=== PATIENT | male | born 1925 | race Caucasian/White ===

== ENCOUNTER 2016-12-02 14:53 | Inpatient (IN) ==
[2016-12-02] MEDS ORDERED: TYLENOL PO PRN (16:00)
[2016-12-02] MEDS ORDERED: ZOFRAN IV PRN (16:00)
--- NOTE | 2016-12-02 16:48 | Diag Imaging Result Document ---
PROCEDURE NAME: MAIDA UPPER W/O CONTRAST - 12/02/2016 CT RIGHT SHOULDER WITHOUT CONTRAST: FINDINGS: There are arthritic changes at the acromioclavicular joint. No fracture to the clavicle or to the scapula. The humeral head is not dislocated. No fracture to the proximal humerus. IMPRESSION: There are at least mild longstanding arthritic changes to the shoulder, but no acute bony injury.
[2016-12-02] MEDS: NS 1,000 ML IV SCH (17:13)
[2016-12-02] MEDS: PROTONIX IV SCH (17:14)
[2016-12-02] MEDS: SODIUM CHLORIDE 0.9% INJ SCH (17:14)
--- NOTE | 2016-12-02 17:14 | HISTORY AND PHYSICAL ---
PRIMARY CARE PHYSICIAN: Dr. Vik Taylor. CHIEF COMPLAINT: Weight loss, malaise, diarrhea and melena. HISTORY OF PRESENT ILLNESS: Mr. Oh is an 89-year-old, male with a history of lung cancer status post partial pneumonectomy, hypertension, GERD, COPD who presents directly from Dr. Vik Taylor's office with report of worsening malaise, weakness over the past few months, weight loss of 25 pounds in the past 6 months, diarrhea and dark and tarry stools. He was actually in the ER about 2 weeks ago for a fall at which time he was complaining of shoulder pain. He had a head CT and shoulder x-ray done which did not show anything acute. He denies any chest pain or shortness of breath. He denies any abdominal pain. He denies any dysuria and no lower extremity edema. No orthopnea. His reports that he has an occasional cough with clear sputum but no overt fever. He has not been eating much at all because of loss of appetite and he is quite frail on physical examination. Multiple labs and diagnostics have been ordered which we are currently awaiting. The patient's vital signs are all within normal limits. He is not afebrile. Blood pressure is good. We are going to admit him now for further treatment and evaluation. PAST MEDICAL HISTORY: 1. Lung cancer status post partial pneumonectomy. 2. GERD. 3. Hypertension. 4. Hyperlipidemia. 5. CVA with subsequent right-sided weakness. 6. Glaucoma. 7. Chronic back pain. SURGICAL HISTORY: Right lung partial pneumonectomy, cervical spine and lumbar spine surgery, cataracts, bilateral inguinal hernia repair. SOCIAL HISTORY: Patient quit smoking 20-30 years ago. He has 2 glasses of wine at night. He is . His is at the bedside. FAMILY HISTORY: Noncontributory. REVIEW OF SYSTEMS: Patient has a history of depression and when asked if he has any suicidal ideations, he stated that he did, that he is in a lot of pain and that at times he wishes he would . He states that he has had plans in the past if he had a gun he would shoot himself or he just wishes he could go to sleep and not wake up. His states that he made these complaints earlier today and he is also complaining of right shoulder pain. Otherwise 10 point review of systems was obtained and found to be negative with the exception of the HPI. HOME MEDICATIONS: Acetaminophen diphenhydramine 500 mg p.o. at bedtime, Brimonidine 5 mL both eyes as directed, Plavix 75 mg p.o. a.m., [place] 5 every 6 hours as needed, lisinopril as directed and statin unspecified name and dose at this time. PHYSICAL EXAMINATION: VITAL SIGNS: Blood pressure is 120/72, heart rate is 80, respiratory rate is 18, O2 saturation 96% on room air. Temperature is 96.1 degrees. GENERAL: This is an elderly and frail-appearing 89-year-old, male, lying in hospital bed. No acute distress. NEUROLOGIC: The patient is awake and alert. He answers orientation questions correctly. He follows commands appropriately with very mild right and lower extremity weakness. Cranial nerves 2-12 are grossly intact. HEENT: Head is atraumatic, normocephalic. Pupils are equal, round, and reactive to light. Oral mucosa is dry. Trachea is midline. CHEST: Diminished throughout but clear to auscultation bilaterally. CV: Regular rate and rhythm. S1, S2 is noted. GI: Soft, nondistended, nontender. Bowel sounds are hypoactive. EXTREMITIES: Without edema, clubbing or cyanosis. Pulses are palpable bilaterally. DIAGNOSTIC DATA: Is pending. ASSESSMENT AND PLAN: 1. Weight loss/asthenia, melena and diarrhea: We have ordered a comprehensive set of labs and CT of the chest, abdomen and pelvis. The differentials are quite broad at this time. 2. Right shoulder pain. We are going to get a CT of the shoulder. X-ray of the shoulder did not show anything acute 2 weeks ago when he came to the ER. 3. Chronic obstructive pulmonary disease: Currently not in exacerbation. O2 saturations are okay. We are checking a CT of the chest now. 4. Suicidal ideations: supervisor underwriting clerks has been made aware and the patient will be on 1 on 1 until we can find an ICU bed. We will consult with [facility] once he is more stable. 5. Melena: We have consulted GI and are getting occult blood and checking a CT of the abdomen and pelvis. 6. GERD. We will add IV Protonix. 7. Hypertension: We will add IV medication for now if needed. 8. We are going to add Protonix for gastrointestinal prophylaxis and SCDs and TEDs for DVT prophylaxis given possible GI bleeding. Further recommendations to follow. Dictated by CYRUS Dunne for Dorinda Elizalde MD
[2016-12-02 17:19] LABS: MANUAL DIFF NEEDED? NO
[2016-12-02 17:26] LABS: BASO% 0.2 % (0.0-0.8); EOS# 0.02 X1000 (0.0-0.7); EOS% 0.2 % (0.0-10.0); HEMATOCRIT 48.3 % (42.0-52.0); HEMOGLOBIN 16.5 g/dL (14.0-18.0); IMM GRAN# 0.05 X1000 (0.0-0.04); IMM GRAN% 0.4 % (0.0-0.5); LYMPH# 1.04 X1000 (1.2-3.4); MCH 32.7 PG (27-31); MCHC 34.2 g/dL (33-37); MCV 95.6 FL (81-99); MONO# 0.97 X1000 (0.11-0.59); MONO% 7.5 % (1.7-9.3); MPV 11.6 FL (7.4-10.4); NEUT% 83.7 % (42.2-75.2); PLT 268 X1000 (130-400); RBC 5.05 XMIL (4.7-6.1); RETIC-HE 37.6 PG (28.2-36.6)
--- NOTE | 2016-12-02 17:28 | Diag Imaging Result Document ---
PROCEDURE NAME: THORAX/ABDOMEN/PELVIS W/O CONT - 12/02/2016 CT CHEST, ABDOMEN, AND PELVIS WITHOUT ORAL OR INTRAVENOUS CONTRAST: : FINDINGS: There is a small right-sided pleural effusion measuring 11 mm posteriorly and inferiorly in the midline. No left effusion. Prominent atherosclerosis in the coronary arteries and thoracic aorta. The ascending thoracic aorta is dilate to 4.7 cm. Prominent calcifications along the pericardial surface posteriorly and laterally on the right. The heart is not enlarged. There is a large hiatal hernia. No enlarged mediastinal or hilar lymph nodes. There are moderate- to-prominent emphysematous changes. There are increased interstitial markings believed to be fibrosis bilaterally. The finding is most pronounced in the right upper lung where there is also bronchiectasis. No consolidation. No compressed thoracic vertebra. IMPRESSION: 1. Prominent atherosclerosis with a dilated ascending thoracic aorta. 2. Prominent pericardial calcifications. 3. Small right effusion with emphysematous changes, fibrosis, and bronchiectasis. 4. Large hiatal hernia. ABDOMEN AND PELVIS WITHOUT ORAL OR INTRAVENOUS CONTRAST: COMPARISON: 03/16/2016. FINDINGS: Normal spleen and adrenal glands. No inflammation about the pancreas or gallbladder. No focal hepatic abnormality identified on this noncontrasted exam. There are bilateral renal cysts. No renal stones. No hydronephrosis. No aortic aneurysm. Prominent atherosclerosis. No bowel obstruction. The urinary bladder is moderately distended and appears normal. The prostate is not enlarged. Prominent seminal vesicles. There are several scattered diverticula. No adjacent inflammation. No abscess. No free air. IMPRESSION: Stable CT of the abdomen and pelvis.
[2016-12-02 17:32] LABS: INR 1.03; PROTIME 10.9 Seconds (9.2-11.7)
[2016-12-02 17:58] LABS: AGAP 20; ALBUMIN 3.6 g/dL (3.5-5.0); ALKALINE PHOSPHATASE 52 U/L (32-122); BUN 23 mg/dL (8-22); CALCIUM 9.6 mg/dL (8.8-10.2); CHLORIDE 93 mmol/L (98-107); COSMO 274; GOT 20 U/L (10-34); GPT 15 U/L (10-44); IRON SATURATION 24 %; POTASSIUM 4.1 mmol/L (3.5-5.1); SODIUM 135 mmol/L (136-145); TCO2 22 mmol/L (25-35); TIBC 223 ug/dL; TOTAL BILIRUBIN 0.42 mg/dL (0.20-1.00); TOTAL IRON 54 ug/dL (53-167); TOTAL PROTEIN 7.6 g/dL (6.3-8.3); UNBOUND IRON 169 ug/dL (112-346)
[2016-12-02] MEDS: NORCO-5 PO PRN (19:59)
[2016-12-02] MEDS: VITAMIN D PO SCH (19:59)
[2016-12-02] MEDS: ALPHAGAN 0.2% OPHTH SOLN BOTH EYES SCH (20:00)
[2016-12-02] MEDS: TRUSOPT 2% OPH SOLN BOTH EYES SCH (20:00)
[2016-12-02 20:53] LABS: URINE SOURCE CLEAN CATCH
[2016-12-02 21:02] LABS: BILIRUBIN URINE SMALL (NEGATIVE); BLOOD URINE TRACE-INTACT (NEGATIVE); CLARITY CLEAR (CLEAR); COLOR YELLOW; GLUCOSE URINE NEGATIVE (NEGATIVE); LEUKOCYTES URINE NEGATIVE (NEGATIVE); NITRITE URINE NEGATIVE (NEGATIVE); PH URINE 5.5; PROTEIN URINE NEGATIVE (NEGATIVE); SP GRAVITY URINE 1.025; URINE CULTURE NEEDED? YES; URINE RBC 20-40 /HPF (<10); URINE WBC TNTC /HPF (<10); UROBILINOGEN URINE 0.2 EU/dL (0.2-1.0)
[2016-12-02 21:03] LABS: URINE CAST NONE SEEN /LPF; URINE CRYSTAL NONE SEEN /HPF; URINE EPITHELIAL CELLS <10 /HPF (<10)
[2016-12-03] MEDS: NS 1,000 ML IV SCH ×2 (06:01→20:32)
[2016-12-03 06:47] LABS: HEMATOCRIT 45.5 % (42.0-52.0); HEMOGLOBIN 15.4 g/dL (14.0-18.0); MCH 33.2 PG (27-31); MCHC 33.8 g/dL (33-37); MCV 98.1 FL (81-99); RBC 4.64 XMIL (4.7-6.1)
[2016-12-03 07:11] LABS: AGAP 16; BUN 18 mg/dL (8-22); CALCIUM 9.2 mg/dL (8.8-10.2); CHLORIDE 98 mmol/L (98-107); COSMO 269; HDL 79 mg/dL (35-55); LDL 57 mg/dL; POTASSIUM 4.2 mmol/L (3.5-5.1); PREALBUMIN 16.3 mg/dL (20-40); SODIUM 134 mmol/L (136-145); TCO2 20 mmol/L (25-35); TRIGLYCERIDES 79 mg/dL (39-160); VLDL 16 mg/dL
[2016-12-03] MEDS: ALPHAGAN 0.2% OPHTH SOLN BOTH EYES SCH ×2 (09:32→20:45)
[2016-12-03] MEDS: TRUSOPT 2% OPH SOLN BOTH EYES SCH ×2 (09:32→20:45)
[2016-12-03] MEDS ORDERED: MYLICON DROPS (DOSE) MISC ONE (09:39)
[2016-12-03] MEDS ORDERED: DIPRIVAN 1% ONE (10:20)
[2016-12-03] MEDS ORDERED: VERSED ONE (10:22)
[2016-12-03] MEDS ORDERED: XYLOCAINE-MPF 2% ONE (10:44)
[2016-12-03] MEDS ORDERED: ANESTHESIA PB SET 88 IN 5742 ONE (10:44)
[2016-12-03] MEDS ORDERED: EXTENSION SET 32 IN 4522 ONE (10:44)
[2016-12-03] MEDS ORDERED: LR 1,000 ML ONE (10:44)
[2016-12-03] MEDS: CARAFATE LIQUID PO SCH ×4 (10:59→22:59)
--- NOTE | 2016-12-03 14:40 | OPERATIVE NOTE ---
PROCEDURE DATE: 12/03/2016 REQUESTING PHYSICIAN: Kee Blackwood MD PROCEDURE: 1. Esophagogastroduodenoscopy with esophageal dilation with TTS balloon. 2. Gastric biopsy. PREOPERATIVE DIAGNOSES: 1. Melena. 2. Weight loss of 145 pounds in the last few years, recently lost 25 pounds in last 6 months. 3. History of depression and suicidal ideation. POSTOPERATIVE DIAGNOSIS: 1. 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 2. Z-line was at 35 cm. 3. Hiatal hernia sliding type 10 cm with Adriano erosions noted. 4. Gastritis in the body and antrum status post biopsy. 5. Hiatal hernia, retroflexion. 6. Duodenitis erosive in duodenal bulb. 7. Normal 2nd portion of duodenum. ESTIMATED BLOOD LOSS: Minimal. COMPLICATIONS: None. ANESTHESIA: Monitored anesthesia care per anesthesiologist. SPECIMENS REMOVED: Gastric antral biopsy sent for pathology. DESCRIPTION OF PROCEDURE: After informed consent, the patient explained the risks, benefits, indications, alternatives of the procedure, the patient prepared for EGD. The risks including infection, bleeding, pain, trauma to the surrounding structures, perforation and were discussed with the patient, among others and he acknowledged understanding and agreed to proceed with procedure. The patient was brought to the OR. He was turned in left lateral position. A bite block placed in patient's mouth after adequate monitored anesthesia care. The upper scope was gently introduced through the oral vestibule and adanced all the way to the second portion of the duodenum. The esophagus normal. In the proximal middle 3rd the distal esophagus showed evidence of a ring at the GE junction and distal esophagus with the EGD scope unable to pass that area. We dilated that area successfully with the TTS balloon 10, 11, 12 and the scope was able to traverse that area. The Z-line was noted at 35 cm. There was evidence of sliding hiatal hernia 10 cm with Adriano erosions noted. This was advanced to the stomach with evidence of erythema in the body and antrum suggesting mild gastritis. This was biopsied. Retroflexion in the stomach revealed normal incisura, otherwise evidence of large hiatal hernia was noted. The GE junction did not show any evidence of any masses. The scope was advanced to the duodenum , which showed evidence of erosions and the duodenal bulb with erythema suggesting erosive duodenitis. The second portion of duodenum appeared normal. The scope was withdrawn into the stomach, the air removed as the scope was withdrawn. The patient tolerated the procedure well, currently monitored in the OR in stable condition. I discussed the plan with the patient upon waking him up, and all questions answered. RECOMMENDATIONS: 1. The patient will follow with us for repeat EGD in 4 weeks. 2. The patient will be on a liquid diet today and advance as tolerated. 3. We will continue on Protonix once daily for 3 months. We will start on Carafate 1 g 6 hours for 4 weeks. 4. The patient will need to chew the food well and stay on aspiration precautions. The patient will follow gastroesophageal reflux lifestyle changes avoid excessive tea, coffee, soda, tomatoes, onions, spicy foods, and avoid any NSAIDs. 5. Above plan discussed with the patient and all questions were answered. MTDD
[2016-12-03] MEDS: PROTONIX IV SCH (15:47)
[2016-12-03] MEDS: SODIUM CHLORIDE 0.9% INJ SCH (15:47)
--- NOTE | 2016-12-03 17:42 | CONSULTATION ---
DATE OF CONSULTATION: 12/03/2016 PRIMARY CARE PROVIDER: Dr. Vik Taylor REASON FOR CONSULT: Right shoulder pain. HISTORY OF PRESENT ILLNESS: Mr. Oh is an 89-year-old, white male with a history of lung cancer, hypertension, GERD, COPD who came to Dr. Taylor's office with worsening malaise and weakness. He was admitted to the hospital for those symptoms. The patient reportedly took a fall about 2 weeks ago, complaining of shoulder pain. It was x-rayed at that time, but when brought to the hospital they performed a CT of the right shoulder. We were asked to evaluate Mr. Oh from Orthopedic standpoint. PAST MEDICAL HISTORY: 1. Lung cancer. 2. Gastroesophageal reflux disease. 3. Hypertension. 4. Hyperlipidemia. 5. Cerebrovascular accident. 6. Glaucoma. 7. Chronic back pain. PAST SURGICAL HISTORY: Right lung pneumonectomy. Cervical spine and lumbar spine surgery. Cataracts. Bilateral inguinal hernia repair. SOCIAL HISTORY: The patient does not smoke. He has a couple glasses of wine each night. He is . FAMILY HISTORY: Noncontributory. HOME MEDICATIONS: 1. Acetaminophen/diphenhydramine 500 mg p.o. at bedtime. 2. Brimonidine 5 mL both eyes as directed. 3. Plavix 75 mg p.o. morning. 4. Dat[place] 5 every 6 hours as needed. 5. Lisinopril as directed. 6. Some type of statin. REVIEW OF SYSTEMS: 10 point review of systems was performed and currently, musculoskeletal complaint was all that he complained of today. PHYSICAL EXAMINATION: General: The patient is sitting up in the bed. He is eating his supper. He is able to answer questions appropriately. His is at the bedside as well. Musculoskeletal: Reveals pain with passive range of motion of the right shoulder as well as pain with palpation of the right shoulder. He is unable to lift his arm. DIAGNOSTICS: A CT that was performed at the hospital reveals that there are arthritic changes to the shoulder. There is no acute bony injury. Basically osteoarthritis. ASSESSMENT: Contusion of the right shoulder and osteoarthritis of the right shoulder. PLAN: We injected his shoulder with a solution of Depo-Medrol, Marcaine and lidocaine and will order a Physical Therapy evaluation for general range of motion to prevent adhesive capsulitis. We will have him follow with Dr. Arango after he is discharge from the hospital in about 3 weeks. Dictated by CYRUS Gong for Mane Arango MD
--- NOTE | 2016-12-03 18:43 | PROGRESS NOTE ---
DATE: 12/03/2016 SUBJECTIVE: The patient had an EGD today at which time, he was noted to have an esophageal stricture with a duodenal ulcer. The patient continued to report that he feels severely depressed and he has been having suicidal thoughts daily. OBJECTIVE: Vital Signs: Temperature 97.9 degrees, blood pressure 140/88, heart rate 110, respirations 20, O2 saturations 98% on room air. General: This is an elderly male, lying comfortably in bed, in no acute distress. Head: Normocephalic atraumatic. Heart: S1, S2. Normal. Regular rate and rhythm. Lungs: Clear to auscultation bilaterally. No wheezes, no rales. No rhonchi. Abdomen: Positive bowel sounds. Soft, nontender, nondistended. Extremities: No edema. No cyanosis. No calf tenderness. Peripheral pulses palpable. Neurologic: The patient is alert and oriented x3. The patient does appear to be depressed. LABS: White blood cell count 9.5, hemoglobin 15, hematocrit 45, platelets 212,000. Sodium 134, potassium 4.2, chloride 98, CO2 20, BUN 18, creatinine 0.6, glucose 79. ASSESSMENT AND PLAN: 1. Distal esophageal ring status post dilation. Continue on Protonix. 2. Duodenitis and gastritis. Continue on Carafate plus Protonix. 3. Major depression with suicidal ideation. The patient will be assessed by [facility]. The patient will most likely require inpatient psychiatric care to address his psychiatric issues. 4. Hypertension. Controlled. 5. Osteoarthritis of the right shoulder. Orthopedic Surgery has been consulted for further recommendations. 6. Will consult physical therapy. 7. Disposition. The patient will most likely need placement at a [facility] facility. rehabilitation services aide has been consulted to assist with this.
[2016-12-03] MEDS: ZOLOFT PO SCH (20:33)
[2016-12-04] MEDS: CARAFATE LIQUID PO SCH ×4 (05:02→20:45)
[2016-12-04 06:38] LABS: AGAP 15; BUN 8 mg/dL (8-22); CALCIUM 8.9 mg/dL (8.8-10.2); CHLORIDE 91 mmol/L (98-107); COSMO 254; POTASSIUM 3.9 mmol/L (3.5-5.1); SODIUM 127 mmol/L (136-145); TCO2 21 mmol/L (25-35)
[2016-12-04 06:46] LABS: HEMATOCRIT 42.4 % (42.0-52.0); HEMOGLOBIN 14.9 g/dL (14.0-18.0); MCH 33.2 PG (27-31); MCHC 35.1 g/dL (33-37); MCV 94.4 FL (81-99); MPV 11.9 FL (7.4-10.4); RBC 4.49 XMIL (4.7-6.1)
--- NOTE | 2016-12-04 07:31 | OPERATIVE NOTE ---
PROCEDURE DATE: 12/03/2016 DIAGNOSIS: Degenerative joint disease right shoulder. PROCEDURE: Intraarticular injection right shoulder. SURGEON: Charissa Arango MD. ANESTHESIA: Local. PROCEDURE IN DETAIL: An 89-year-old male with DJD about the right shoulder. Risks and benefits of intra-articular injection were discussed and he is willing to proceed. A posterior portal over the right shoulder was prepped with Betadine sterilely. Afterwards, a mixture of Marcaine and Depo-Medrol roughly 10 mL of Marcaine and 80 mg Depo-Medrol was introduced into the joint through a 21-gauge needle. Patient tolerated the procedure well and afterwards the area was covered with a Band-Aid. No adverse effects were noted.
[2016-12-04] MEDS ORDERED: SAMSCA PO ONE (10:12)
[2016-12-04] MEDS: TRUSOPT 2% OPH SOLN BOTH EYES SCH (12:28)
[2016-12-04] MEDS: NS 1,000 ML IV SCH (12:28)
[2016-12-04] MEDS: ALPHAGAN 0.2% OPHTH SOLN BOTH EYES SCH (12:28)
--- NOTE | 2016-12-04 16:17 | PROGRESS NOTE ---
DATE: 12/04/2016 SUBJECTIVE: The patient is resting comfortably in bed. He has no complaints at this time. No acute events noted overnight. OBJECTIVE: Vital Signs: Temperature 98, blood pressure 118/74, heart rate 103, respirations 18, O2 saturations 94% on room air. General: This is an elderly, chronically ill-appearing male, lying in bed, in no acute distress. Head: Normocephalic, atraumatic. Heart: S1, S2. Normal. Tachycardic. Lungs: Clear to auscultation bilaterally. No wheezing, no rales. No rhonchi. Abdomen: Positive bowel sounds. Soft, nontender, nondistended. Extremities: No edema. No cyanosis. Neurologic: The patient is alert and oriented x3. No focal neurologic deficits noted. LABS: White blood cell count 11. Hemoglobin 14, hematocrit 42, platelets 208. Sodium 127, potassium 3.9, chloride 91, CO2 of 21, BUN 8, creatinine 0.5, glucose 112. ASSESSMENT AND PLAN: 1. Distal esophageal ring status post dilation. Continue on Protonix. 2. Duodenitis with gastritis. Continue on Carafate plus Protonix. 3. Major depression with suicidal ideation. The patient did admit to suicidal thoughts on admission and even yesterday. However, today he is denying it. The patient was assessed by [facility] and since the patient is refusing further psychiatric intervention, they are unable to accept him at this time. We will continue on Zoloft and one-to-one observation. 4. Hypertension. Controlled. 5. Osteoarthritis of the right shoulder. Continue with physical therapy. DISPOSITION: environmental services floor tech is working on placement for the patient.
[2016-12-04] MEDS: PROTONIX IV SCH (16:21)
[2016-12-04] MEDS: ZOLOFT PO SCH (20:46)
[2016-12-04] MEDS: TYLENOL PM PO PRN (20:46)
[2016-12-05] MEDS: CARAFATE LIQUID PO SCH ×4 (04:49→17:21)
[2016-12-05] MEDS: TRUSOPT 2% OPH SOLN BOTH EYES SCH ×2 (04:50→11:53)
[2016-12-05] MEDS: ALPHAGAN 0.2% OPHTH SOLN BOTH EYES SCH ×2 (04:50→11:53)
[2016-12-05 06:28] LABS: HEMATOCRIT 44.2 % (42.0-52.0); HEMOGLOBIN 15.2 g/dL (14.0-18.0); MCHC 34.4 g/dL (33-37); MCV 96.1 FL (81-99); MPV 11.9 FL (7.4-10.4); RBC 4.6 XMIL (4.7-6.1)
[2016-12-05 06:49] LABS: AGAP 16; BUN 10 mg/dL (8-22); CALCIUM 9.6 mg/dL (8.8-10.2); CHLORIDE 99 mmol/L (98-107); COSMO 274; SODIUM 137 mmol/L (136-145); TCO2 22 mmol/L (25-35)
--- NOTE | 2016-12-05 17:18 | PROGRESS NOTE ---
DATE: 12/05/2016 SUBJECTIVE: The patient seems to be in better spirits today. He states that he slept well overnight. He does not have any complaints today. OBJECTIVE: Vital Signs: Temperature 97 degrees, blood pressure 103/69, heart rate 117, respirations 20, O2 saturations 97% on room air. General: This is an elderly male lying comfortably in bed in no acute distress. Head: Normocephalic, atraumatic. Heart: S1, S2. Normal. Regular rate and rhythm. Lungs: Clear to auscultation bilaterally. No wheezes, no rales. No rhonchi. Abdomen: Positive bowel sounds. Soft, nontender, nondistended. Extremities: No edema. No cyanosis. No calf tenderness. Neuro: The patient is alert and oriented x3. No focal neurologic deficits noted. LABS: White blood cell count 8.8, hemoglobin 15, hematocrit 44, platelets 217, 000. Sodium 137, potassium 4, chloride 99, CO2 22, BUN 10, creatinine 0.5, glucose 115, calcium 9.6. ASSESSMENT AND PLAN: 1. Distal esophageal ring status post dilation. Continue on Protonix. 2. Major depression with suicidal ideation. The patient appears to be in better spirits today. Continue on Zoloft. 3. Duodenitis with gastritis. Continue on Carafate and Protonix. 4. Hypertension. Controlled. 5. Osteoarthritis of the right shoulder. Continue with range of motion exercises as well as physical therapy. 6. Disposition. Awaiting rehab placement. [facility]
[2016-12-05] MEDS: PROTONIX IV SCH (17:22)
[2016-12-05] MEDS: SODIUM CHLORIDE 0.9% INJ SCH (17:22)
--- NOTE | 2016-12-05 17:38 | PROGRESS NOTE ---
DATE: 12/05/2016 SUBJECTIVE: Patient currently resting in bed. He denies any new complaints. He was able to eat 70% of a meal today. He had 1 liquid brown bowel movement today. OBJECTIVE: Temperature 97.1 degrees, pulse rate 117, respiratory rate 20, blood pressure 103/69, saturating 92% on room air. Body weight of 121 pounds. BMI of 18.4 kg.General Appearance: Thinly built, lying in bed, in no acute distress. HEENT: No pallor. No icterus. Pupils equal, react to light. Neck: Supple. Abdomen: Soft, nontender, nondistended. Bowel sounds. No rebound. Extremities: No cyanosis, clubbing, and edema. Neurologic: He is alert and awake and oriented x3. His family at bedside. His son was at the bedside. LABS: Hemoglobin and hematocrit is 15.2, 44.2, white count of 8.8, platelet count of 217,000. MCV of 96.1. Sodium 137, potassium 4, chloride 99, bicarb 22, anion gap of 16. BUN of 10, creatinine 0.5, glucose of 115, calcium 9.6. Pre-albumin is 16.3. Urine culture showed no growth. IMPRESSION AND PLAN: 1. Superficial ulcer of duodenum. The patient will be on Protonix once daily for the next 8-12 weeks and then can be weaned down to Zantac 150 mg at bedtime as needed. 2. The patient will need to be on gastroesophageal reflux life changes. 3. The patient has tight esophageal ring and distal esophageal GE junction which was dilated to 10, 11 and 12 with TTS balloon. In this regard he will continue to take small frequent meals and chew food up. I will repeat EGD in 4-6 weeks depending on the patient's symptoms. 4. Large hiatal hernia measuring about 10 cm per the EGD. Encouraged the patient to take small frequent meals. 5. Diverticulosis in the colon seen on CT scan. The patient increased fiber intake to 25-30 g and avoid excessive corn, nuts, and seeds in diet. 6. Weight loss: Watch for now. Patient has depression and is being treated by primary care team. This was discussed the patient and his son at bedside and all questions were answered. [facility]
[2016-12-05] MEDS: ZOLOFT PO SCH (21:52)
[2016-12-05] MEDS: TYLENOL PM PO PRN (21:52)
[2016-12-06] MEDS: CARAFATE LIQUID PO SCH ×4 (05:44→15:51)
[2016-12-06] MEDS: TRUSOPT 2% OPH SOLN BOTH EYES SCH ×3 (05:44→21:30)
[2016-12-06] MEDS: ALPHAGAN 0.2% OPHTH SOLN BOTH EYES SCH ×3 (05:44→21:30)
--- NOTE | 2016-12-06 14:37 | PROGRESS NOTE ---
DATE: 12/06/2016 SUBJECTIVE: The patient states that he feels a lot better today. He states that he is not feeling as depressed today but he does report that he does have bouts of depression. OBJECTIVE: Vital Signs: Temperature 97 degrees, blood pressure 122/88, heart rate 112, respirations 18, O2 saturation is 97% on room air. General: This is a chronically ill-appearing, elderly male, lying in bed, in no acute distress. Head: Normocephalic, atraumatic. Heart: S1, S2. Normal. Tachycardic. Lungs: Clear to auscultation bilaterally. No wheezes. No rales. No rhonchi. Abdomen: Positive bowel sounds. Soft, nontender, nondistended. Extremities: No edema. No cyanosis. No calf tenderness. Peripheral pulses palpable. Neurologic: The patient is alert oriented x3. No focal neurologic deficits noted. LABS: White blood cell count 8.8, hemoglobin 15, hematocrit 44, platelets 217,000. Sodium 137, potassium 4, chloride 99, CO2 22, BUN 10, creatinine 0.5, glucose 115. ASSESSMENT AND PLAN: 1. Distal esophageal ring status post dilation. Continue on Protonix. 2. Duodenitis and gastritis. Continue on Carafate and Protonix. 3. Major depression with suicidal ideation. Continue on Zoloft. The patient at some point will need an official psychiatric evaluation. 4. Hypertension. Controlled. 5. Osteoarthritis of the right shoulder. Continue with range of motion exercises as well as physical therapy. 6. Disposition. Currently awaiting rehab placement.
[2016-12-06] MEDS: SODIUM CHLORIDE 0.9% INJ SCH (15:51)
[2016-12-06] MEDS: PROTONIX IV SCH (15:51)
--- NOTE | 2016-12-06 18:44 | PROGRESS NOTE ---
DATE: 12/06/2016 SUBJECTIVE: Patient is currently resting in bed. His is present at bedside. He denies any new complaints. He is eating better. His depression little better today. Denies any nausea, vomiting, dysphagia, abdominal pain, fever, chills. OBJECTIVE: Vitals: Temperature 97.7, pulse 101, respiratory 12, blood pressure 111/70, saturating 98% room air. General Appearance: Thinly built lying in bed,in no acute. HEENT: Mild pallor. No icterus. Neck: Supple. Abdomen: Soft, nontender, nondistended. Bowel sounds and no guarding. Extremities: No cyanosis, clubbing. Neuro: Alert and awake, answers questions appropriately. LABS: reviewed; Hemoglobin and hematocrit is 15.2 and 44.2 from 12/05 and rest of labs also 12/05. MEDICATIONS: Reviewed IMPRESSION/PLAN: 1. Distal esophageal ring at gastroesophageal junction and distal esophagus status post dilation with TTS dilator 07/21/2012. Continue Protonix for 3 months. We will repeat a dilation 4-6 weeks. 2. Gastroesophageal reflux life changes: Avoid excessive tea coffee sodas, tomatoes, onions and spicy foods and avoid NSAIDS if ok with primary care team. 3. Duodenitis and gastritis. Continue on Carafate and Protonix as above. 4. Major depression and suicidal ideation. Continue on Zoloft. Primary care team is following. 5. Patient will follow up in the clinic in 4 weeks of discharge. The above plan of care was discussed with the patient and all questions were answered. [facility]
[2016-12-06] MEDS: ZOLOFT PO SCH (21:31)
[2016-12-06] MEDS: TYLENOL PM PO PRN (21:32)
[2016-12-07] MEDS: CARAFATE LIQUID PO SCH ×4 (04:49→21:29)
[2016-12-07] MEDS: ALPHAGAN 0.2% OPHTH SOLN BOTH EYES SCH ×2 (10:09→21:29)
[2016-12-07] MEDS: TRUSOPT 2% OPH SOLN BOTH EYES SCH ×2 (10:09→21:30)
--- NOTE | 2016-12-07 11:10 | PROGRESS NOTE ---
DATE: 12/07/2016 SUBJECTIVE: Patient is currently resting in bed. He is appearing well dressed today. He is eating his breakfast. His last bowel movement was yesterday per the records. OBJECTIVE: Vital signs: Temperature of 98.3 degrees, pulse of 98, respiratory rate 18, blood pressure 137/95, saturating 98% on room air. General Appearance: Moderately built, moderately nourished, lying in bed, in no acute distress. HEENT: No pallor. No icterus. Neck: Supple. Abdomen: Soft, nontender, nondistended. Bowel sounds noted. No guarding or rebound. Extremities: No cyanosis, clubbing. Neurologic: Alert, awake, oriented. LABS: No labs were drawn for the last 2 days. ASSESSMENT AND PLAN: 1. 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 Likely secondary to long-standing reflux. Will continue on Protonix once daily for 3 months. The patient may need repeat dilation in 4-6 weeks. 2. The patient will follow gastroesophageal reflux lifestyle changes. 3. Hiatal hernia. Will take small frequent meals about 4 to 6 times daily and chew the food well. 4. Duodenitis and gastritis. He is already on Protonix and Carafate as well. 5. Major depression, suicidal ideation. He is currently on Zoloft. He is feeling better. He is being followed by the primary care team. 6. Above plan was discussed with the patient and all questions answered. MTDD
[2016-12-07] MEDS: PROTONIX IV SCH (16:40)
[2016-12-07] MEDS: SODIUM CHLORIDE 0.9% INJ SCH (16:41)
--- NOTE | 2016-12-07 17:59 | PROGRESS NOTE ---
DATE: 12/07/2016 SUBJECTIVE: Patient has no focal complaints. OBJECTIVE: Vital Signs: Blood pressure 120/80, heart rate 98, respiratory 18, temperature 97.7 degrees, 97% on room air. Cardiovascular: Regular rate and rhythm. Pulmonary: Bilateral breath sounds. Clear to auscultation. Gastrointestinal: Abdomen soft, nontender, nondistended. Bowel sounds are positive. LABORATORY DATA: Hemoglobin and hematocrit is 15 and 44, platelets of 217,000 when last checked. Chemistries a couple of days ago were okay. PROBLEM LIST: 1. Gastritis/duodenitis. He seems to be stable on current medications status post dilation. 2. Major depression. He appears stable on current Zoloft. [facility] consultation has been completed but not recommending long-term care. 3. Hypertension stable. 4. Disposition. Awaiting rehabilitation placement. We will continue to follow.
[2016-12-07] MEDS: ZOLOFT PO SCH (21:29)
[2016-12-07] MEDS: TYLENOL PM PO PRN (21:32)
[2016-12-08] MEDS: CARAFATE LIQUID PO SCH ×4 (04:43→23:57)
[2016-12-08] MEDS: ALPHAGAN 0.2% OPHTH SOLN BOTH EYES SCH ×2 (09:38→23:56)
[2016-12-08] MEDS: TRUSOPT 2% OPH SOLN BOTH EYES SCH ×2 (09:38→23:56)
--- NOTE | 2016-12-08 12:45 | PROGRESS NOTE ---
DATE: 12/08/2016 SUBJECTIVE: The patient is feeling well. He is doing his crossword puzzle. His friend at the bed is concerned about them waiting for the State to clear him before he can go to a rehab. The patient otherwise has no suicidal or homicidal ideations. PHYSICAL EXAMINATION: Vital Signs: Blood pressure 104/63, pulse of 98, respiration 18, temperature 97.9 degrees, saturation of 98% on room air. General Appearance: Well-developed, well-nourished white male, in no acute distress. HEENT: Anicteric. Clear conjunctivae. Neck: Supple. No JVD. No bruit. Cardiovascular: S1, S2. Normal rate and rhythm. No murmur, rubs, or gallops. Pulmonary: Clear to auscultation bilaterally. ASSESSMENT AND PLAN: This is an 89-year-old admitted to the hospital for abdominal pain. 1. Gastritis and duodenitis, stable. We will continue Protonix and Carafate. 2. Depression and suicidal ideation. The patient does not have any suicidal ideation currently, not homicidal. The patient appears calm and collected. [facility] cleared the patient and would not recommended long-term care. The family very anxious we will get the patient to go to a rehab. We tried to explain to the patient that because of his suicide suicidal ideation this State had to clear for him before he can go to a rehab. I will have psychosocial rehabilitation counselor try to talk to the State to see if they can see him early or they can release him so he can go to a rehab. 3. Hypertension. Stable. 4. Dispositions. Continue to wait for rehab placement.
[2016-12-08] MEDS: PROTONIX IV SCH (15:04)
[2016-12-08] MEDS: ZOLOFT PO SCH (23:57)
[2016-12-09] MEDS: CARAFATE LIQUID PO SCH ×5 (06:39→19:42)
[2016-12-09] MEDS: ALPHAGAN 0.2% OPHTH SOLN BOTH EYES SCH ×3 (08:28→21:20)
[2016-12-09] MEDS: TRUSOPT 2% OPH SOLN BOTH EYES SCH ×3 (08:28→21:20)
--- NOTE | 2016-12-09 12:29 | PROGRESS NOTE ---
DATE: 12/09/2016 SUBJECTIVE: The patient is feeling well and has no complaint. His at the bedside. Vital Signs: Blood pressure 122/70, pulse of 98, respiration 18, temperature 98.1 degrees, saturation 97% on room air. General Appearance: Thin, white male, in no acute distress. HEENT: Anicteric. Clear conjunctivae. Neck: Supple. No JVD. No bruit. Cardiovascular: S1 and S2. Normal rate and rhythm. No murmur, rubs, or gallops. Pulmonary: Clear to auscultation bilaterally. Gastrointestinal: Soft, nontender, nondistended. Normoactive bowel sounds. Musculoskeletal: No clubbing, cyanosis, or edema. LABORATORY: None were ordered for today. ASSESSMENT AND PLAN: An 89-year-old admitted to the hospital for abdominal pain. 1. Gastritis and duodenitis. Continue Protonix and Carafate. 2. Depression and suicidal ideation. He is currently denying having any suicidal thoughts or depression. We talked to the State and they have until 12/18/2016 to come and do an evaluation before he can go. Family considering an assisted living facility. I encouraged them to discuss with the social work nurse. 3. Hypertension, stable. Continue the current medication. 4. Disposition will continue to wait for rehabilitation.
--- NOTE | 2016-12-09 15:43 | PROGRESS NOTE ---
DATE: 12/09/2016 SUBJECTIVE: Patient is resting in bed. His family is present at the bedside. The family is currently frustrated as the patient is not getting released to rehab. According to the family, the primary care team is awaiting the state department to come and evaluate the patient before being released to rehab. OBJECTIVE: Vital signs: Temperature 98.1 degrees, pulse rate of 98, respiratory rate 18, blood pressure 122/70, saturating 90% on room air. General Appearance: Thinly built , lying in bed, in no acute distress. HEENT: No pallor. No icterus. Neck: Supple. Abdomen: Soft, nontender, nondistended. Extremities: No cyanosis, clubbing. Neurologic: He is awake and alert. LABORATORY: Drawn last on 12/05. IMPRESSION AND PLAN: 1. 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 We will continue Protonix once daily for 3 months. We will repeat dilation in 4 -6 weeks. 2. The patient will follow gastroesophageal reflux life. 3. Gastritis and duodenitis. He will continue on proton pump inhibitors as above. 4. Hiatal hernia-large The patient will be taking small frequent meals and chew the food well. 5. Major depression, per the primary care team. 6. Bowel regimen to continue. Further recommendations pending hospital course. MTDD
[2016-12-09] MEDS: PROTONIX IV SCH (16:11)
[2016-12-09] MEDS: SODIUM CHLORIDE 0.9% INJ SCH (16:11)
--- NOTE | 2016-12-09 19:17 | PROGRESS NOTE ---
DATE: 12/08/2016 SUBJECTIVE: The patient is feeling much better. Eating well. No distress. His mood has improved. OBJECTIVE: Vital signs: Stable. Temperature normal. Pulse 98, respiration 18, blood pressure 130/90, saturation 98%. General: Moderately nourished, lying in bed, in no acute distress. HEENT: No pallor, no icterus. Neck: Supple. Trachea midline. Heart: Normal. Lungs: Normal. Abdomen: Soft. Nontender. No organomegaly. No ascites. Bowel sounds present and normal. Extremities: No cyanosis, clubbing, or edema. Neurologic: Alert, awake and oriented. LABS: No recent labs. IMPRESSION: 1. 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 Dawson. The patient is doing much better with his nutritional status and eating pretty much everything. He is scheduled for a repeat dilation in a few weeks. 2. gastroesophageal reflux regimen. 3. He was educated on hiatal hernia. 4. Major depression. He is on Zoloft and he is actually feeling much better with a better attitude. Hopefully he will continue to do well.
[2016-12-09] MEDS: ZOLOFT PO SCH (19:42)
[2016-12-09] MEDS: TYLENOL PM PO PRN (19:42)
[2016-12-09] MEDS: VITAMIN D PO SCH (19:42)
[2016-12-10] MEDS: CARAFATE LIQUID PO SCH ×5 (06:41→22:15)
[2016-12-10] MEDS: ZOLOFT PO SCH ×2 (06:41→22:15)
[2016-12-10] MEDS: TRUSOPT 2% OPH SOLN BOTH EYES SCH ×2 (09:21→22:15)
[2016-12-10] MEDS: ALPHAGAN 0.2% OPHTH SOLN BOTH EYES SCH ×2 (09:22→22:15)
--- NOTE | 2016-12-10 12:06 | PROGRESS NOTE ---
DATE: 12/10/2016 SUBJECTIVE: Patient is currently resting in bed. He is awaiting placement. He denies any new complaints. OBJECTIVE: Vital signs: Temperature of 97.5 degrees, pulse rate of 88, respiratory rate 20, blood pressure 110/72, saturating 100% room air. General Appearance: Moderately nourished, moderately built, lying in bed, in no acute distress. HEENT: No pallor. No icterus. Neck: Supple. Abdomen: Soft, nontender, nondistended. Bowel sounds are present. Extremities: No cyanosis, clubbing. Neurologic: Alert, awake, oriented. LAB: Hemoglobin and hematocrit are 15.2 and 44.2%. No further labs were checked since that time. IMPRESSION AND PLAN: 1. 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 Will need repeat dilation in 4-6 weeks. In the meanwhile, the patient will take small frequent meals, chew the food very well, and drink plenty of fluids. 2. The patient will follow gastroesophageal reflux lifestyle changes. 3. Large hiatal hernia. Continue to take small frequent meals. 4. Major depression. Being treated by the primary care team. 5. The patient is awaiting rehab placement once cleared by the primary care team and social work. The above plan was discussed the patient. All questions were answered. [facility]
--- NOTE | 2016-12-10 12:20 | PROGRESS NOTE ---
DATE: 12/10/2016 SUBJECTIVE: The patient is doing well. No complaints. He is anxious to go to rehab, but we still having him stay to evaluate him because of his suicidal ideation. OBJECTIVE: Vital Signs: Blood pressure 110/72, pulse of 88, respirations 21, temperature 97.5 degrees. Saturation of 100% on room air. General Appearance: Thin, white male, in no acute distress. HEENT: Anicteric. Clear conjunctivae. Neck supple. No JVD. No bruits. Cardiovascular: S1, S2. Normal rate and rhythm. No murmur, rubs, or gallops. Pulmonary: Clear to auscultation bilaterally. GI: Soft, nontender, nondistended. Normoactive bowel sounds. Musculoskeletal: No clubbing, cyanosis, or edema. ASSESSMENT AND PLAN: This is an 89-year-old white male admitted to the hospital for gastritis and duodenitis. 1. Gastritis and duodenitis. We will continue Protonix and Carafate. General Accounting Manager is following. 2. Suicidal ideations. We are waiting for the State to clear for the patient to go to a long- term rehab. 3. Hypertension. Continue current medications. 4. CODE STATUS: The patient is a FULL CODE.
[2016-12-10] MEDS: PERICOLACE PO PRN (12:56)
[2016-12-10] MEDS: PROTONIX IV SCH (16:15)
[2016-12-10] MEDS: SODIUM CHLORIDE 0.9% INJ SCH (16:15)
[2016-12-11] MEDS: CARAFATE LIQUID PO SCH ×5 (05:34→22:21)
[2016-12-11] MEDS: ALPHAGAN 0.2% OPHTH SOLN BOTH EYES SCH ×2 (08:24→22:16)
[2016-12-11] MEDS: TRUSOPT 2% OPH SOLN BOTH EYES SCH ×2 (08:30→22:15)
[2016-12-11] MEDS: PERICOLACE PO PRN (11:15)
--- NOTE | 2016-12-11 13:36 | PROGRESS NOTE ---
DATE: 12/11/2016 SUBJECTIVE: The patient doing well. Reading a paper. No issue. He stated that the State came out and evaluated him yesterday. Vital signs: Blood pressure 136/79, pulse of 96, respirations 16, temperature 97.5 degrees, saturating 100% on room air. General Appearance: Well-developed, thin white male, in no acute distress. Reading his newspaper in bed. HEENT: Anicteric. Clear conjunctivae. Neck: Supple. No JVD. No bruit. Cardiovascular: S1, S2. Normal rate and rhythm. No murmur, rubs, or gallops. Pulmonary: Clear to auscultation bilaterally. GI: Soft, nontender, nondistended. Normoactive bowel sounds. Musculoskeletal: No clubbing, cyanosis, or edema. ASSESSMENT AND PLAN: 89-year-old white male, admitted to the hospital for gastritis. 1. Gastritis much improved. Continue Protonix and Carafate. 2. Depression and suicidal. He has no suicidal ideation. The State came by yesterday and evaluated the patient. I discussed with social media manager, who informed me that the State will have to tie up the report and submit it to the senior living doctors before we can get the doctor over there assuming that he is accepted. We will continue with his current care. We will continue to keep the patient inpatient for now.
[2016-12-11] MEDS: PROTONIX IV SCH (15:39)
[2016-12-11] MEDS: SODIUM CHLORIDE 0.9% INJ SCH (15:39)
[2016-12-11] MEDS: TYLENOL PM PO PRN (22:15)
[2016-12-11] MEDS: ZOLOFT PO SCH (22:15)
[2016-12-11] MEDS: MIRALAX PO SCH ×2 (22:15→22:22)
[2016-12-12] MEDS: TRUSOPT 2% OPH SOLN BOTH EYES SCH ×2 (08:04→22:54)
[2016-12-12] MEDS: ALPHAGAN 0.2% OPHTH SOLN BOTH EYES SCH ×2 (08:05→22:54)
[2016-12-12] MEDS: PERICOLACE PO PRN (08:37)
--- NOTE | 2016-12-12 10:20 | PROGRESS NOTE ---
DATE: 12/11/2016 SUBJECTIVE: Patient resting in bed. He is waiting for placement at longterm. No new complaints. OBJECTIVE: Vital signs: Stable. Temp 97.5 degrees, pulse 88, respirations 20, blood pressure 110/70, saturation 100%. General: Moderately nourished, moderately built male in no acute distress. HEENT: No conjunctival pallor. Neck: Supple. Trachea midline. Heart and Lungs: Normal. Abdomen: Soft, nontender, nondistended. Bowel sounds present and normal. Extremities: No cyanosis or clubbing. Neurological: Alert and oriented. LABS: Stable. IMPRESSION AND PLAN: 1. Dysphagia secondary to esophageal ring, resolved. 2. Gastroesophageal reflux. Lifestyle changes. 3. Large hiatal hernia. 4. Major depression. He is currently waiting for the rehabilitation placement, and he should be able to most likely be discharged today.
[2016-12-12] MEDS: CARAFATE LIQUID PO SCH ×4 (10:40→22:53)
--- NOTE | 2016-12-12 14:41 | PROGRESS NOTE ---
DATE: 12/12/2016 SUBJECTIVE: The patient doing well. No complaint as well. At the bedside all questions were invited and entertained. OBJECTIVE: Blood pressure 140/86, pulse of 80, respiration of 17, temperature 97.6 degrees, saturations 97% on room air.General Appearance: Thin, white male, in no acute distress. Sitting up in his bed during the course of our appraisal. Neck: Supple. No JVD. No bruit. Cardiovascular: S1, S2, normal rate and rhythm. No murmur, rubs, or gallops. Pulmonary: Clear to auscultation bilaterally. GI: Soft, nontender, nondistended. Normoactive bowel sounds. Musculoskeletal: No clubbing, cyanosis, or edema. LABORATORY: None were ordered for today. ASSESSMENT AND PLAN: This is an 89-year-old white male, admitted to the hospital for abdominal pain and gastritis. 1. Abdominal pain and gastritis. We will continue Carafate and Protonix. 2. Suicidal ideation. They saw the patient on and we are waiting for them to type up the final report to give to the MD at the rehab so that we can transfer the patient over once the MD accepts him. We will continue the current care for now. We will continue to monitor the patient in-house. Family was kept informed with the progress.
[2016-12-12] MEDS: PROTONIX IV SCH (16:02)
[2016-12-12] MEDS: ZOLOFT PO SCH (22:50)
[2016-12-12] MEDS: TYLENOL PM PO PRN (22:53)
[2016-12-12] MEDS: MIRALAX PO SCH (22:54)
[2016-12-13] MEDS: CARAFATE LIQUID PO SCH ×4 (04:38→22:09)
[2016-12-13] MEDS: ALPHAGAN 0.2% OPHTH SOLN BOTH EYES SCH ×2 (09:33→22:04)
[2016-12-13] MEDS: TRUSOPT 2% OPH SOLN BOTH EYES SCH ×2 (09:33→22:04)
[2016-12-13] MEDS: MIRALAX PO SCH ×2 (09:34→22:06)
--- NOTE | 2016-12-13 15:15 | PROGRESS NOTE ---
DATE: 12/13/2016 SUBJECTIVE: The patient was sound asleep. His was in the sagastume. All questions were invited and entertained. OBJECTIVE: Vital signs: Blood pressure 111/71, pulse of 95, respiration 18, temperature 97.9 degrees, saturations of 97% room air. General appearance: Well-developed thin white male in no acute distress. Cardiovascular: S1, S2 normal rate and rhythm. No murmur, rubs, or gallops. Pulmonary: Clear to auscultation bilaterally. GI: Soft, nontender, nondistended. Normoactive bowel sounds. Musculoskeletal: No clubbing, cyanosis, edema. PLAN: Will wait for the state to tie up the final report so we can get the patient to a long- term rehab. The state saw the patient on this past . dairy machine operator farmworker is aware. Will continue to monitor the patient in-house. Will get him to the rehab as soon as possible.
[2016-12-13] MEDS: SODIUM CHLORIDE 0.9% INJ SCH (17:32)
[2016-12-13] MEDS: PROTONIX IV SCH (17:32)
[2016-12-13] MEDS: TYLENOL PM PO PRN (22:05)
[2016-12-13] MEDS: ZOLOFT PO SCH (22:06)
[2016-12-14] MEDS: CARAFATE LIQUID PO SCH ×5 (03:55→23:24)
[2016-12-14] MEDS: MIRALAX PO SCH ×2 (09:01→20:16)
[2016-12-14] MEDS: TRUSOPT 2% OPH SOLN BOTH EYES SCH ×2 (09:02→20:17)
[2016-12-14] MEDS: ALPHAGAN 0.2% OPHTH SOLN BOTH EYES SCH ×2 (09:02→20:17)
--- NOTE | 2016-12-14 11:44 | PROGRESS NOTE ---
DATE: 12/14/2016 SUBJECTIVE: The patient is getting ready for discharge today. He is tolerated diet well over the weekend. His last bowel movement was 3 days ago. OBJECTIVE: Vital signs: Temperature of 97.6 degrees, pulse rate of 97, respiratory rate 18, blood pressure 131/87, saturating 99% on room air. General: Thin, lying in bed, in no acute distress. HEENT: No pallor. No icterus. Neck: Supple. Abdomen: Soft, nontender, nondistended. Bowel sounds are noted. No guarding, rebound. Extremities: No cyanosis, clubbing, edema. Neurologic: He is alert, awake, oriented. LABS: No labs from this past week. Urine culture is negative. IMPRESSION AND PLAN: 1. Dysphagia secondary to esophageal ring, resolved. The patient was eating better over the weekend. 2. Gastroesophageal reflux disease. Continue follow gastroesophageal reflux lifestyle changes. 3. Large hiatal hernia. Take small frequent meals and chew the food very well. 4. Major depression. Per the primary team. 5. The patient will return to clinic in 4 weeks of discharge to evaluate for EGD with further esophageal dilation. 6. Constipation. Continue on MiraLAX once or twice daily to help with his bowels. 7. The above plan was discussed with the patient and all questions answered.
--- NOTE | 2016-12-14 17:41 | PROGRESS NOTE ---
DATE: 12/14/2016 SUBJECTIVE: The patient is resting comfortably in bed. He has no complaints at this time. OBJECTIVE: Vital Signs: Temperature 97.6 degrees, blood pressure 135/80, heart rate 95, respirations 18, O2 saturation is 98% on room air. General: This is a chronically ill-appearing, elderly male, lying in bed, in no acute distress. Head: Normocephalic, atraumatic. Heart: S1, S2. Normal. Regular rate and rhythm. Lungs: Clear to auscultation bilaterally. No wheezing. No rales. No rhonchi. Abdomen: Positive bowel sounds. Soft, nontender, nondistended. Extremities: No edema. No cyanosis. No calf tenderness. Peripheral pulses palpable. Neurologic: The patient is alert and oriented x3. No focal neurologic deficits noted. LABS: None. ASSESSMENT AND PLAN: 1. Distal esophageal ring status post dilation. Improved. Continue on Protonix. 2. Duodenitis with gastritis. Continue on Protonix and Carafate. 3. Major depression. Continue on Zoloft. 4. Hypertension. Controlled. 5. Constipation. Continue on scheduled laxative therapy. 6. Osteoarthritis of the right shoulder. Continue with range of motion exercises, as well as physical therapy. 7. Disposition. Currently awaiting rehab placement.
[2016-12-14] MEDS: SODIUM CHLORIDE 0.9% INJ SCH (18:23)
[2016-12-14] MEDS: PROTONIX IV SCH (18:23)
[2016-12-14] MEDS: ZOLOFT PO SCH (20:18)
[2016-12-14] MEDS: DULCOLAX PR SCH (20:26)
[2016-12-15] MEDS: CARAFATE LIQUID PO SCH ×4 (04:46→22:59)
[2016-12-15 06:07] LABS: HEMATOCRIT 41.9 % (42.0-52.0); HEMOGLOBIN 14.8 g/dL (14.0-18.0); MCH 33.2 PG (27-31); MCHC 35.3 g/dL (33-37); MCV 93.9 FL (81-99); MPV 11.6 FL (7.4-10.4); RBC 4.46 XMIL (4.7-6.1)
[2016-12-15 06:37] LABS: AGAP 13; BUN 14 mg/dL (8-22); CALCIUM 9.6 mg/dL (8.8-10.2); CHLORIDE 92 mmol/L (98-107); COSMO 259; POTASSIUM 3.5 mmol/L (3.5-5.1); SODIUM 129 mmol/L (136-145); TCO2 24 mmol/L (25-35)
[2016-12-15] MEDS ORDERED: SAMSCA PO ONE (09:00)
[2016-12-15] MEDS: ALPHAGAN 0.2% OPHTH SOLN BOTH EYES SCH ×3 (10:40→22:57)
[2016-12-15] MEDS: TRUSOPT 2% OPH SOLN BOTH EYES SCH ×2 (10:42→22:57)
[2016-12-15] MEDS: MIRALAX PO SCH ×2 (10:42→22:58)
--- NOTE | 2016-12-15 13:55 | PROGRESS NOTE ---
DATE: 12/15/2016 SUBJECTIVE: The patient is resting comfortably in bed. He has no complaints at this time. No acute events noted overnight. OBJECTIVE: Vital Signs: Temperature 97 degrees, blood pressure 121/77, heart rate 100, respirations 18, O2 saturations 100% on room air. General: This is a chronically ill-appearing, elderly male, lying in bed in no acute distress. Head: Normocephalic, atraumatic. Heart: S1, S2. Normal tachycardic. Lungs: Clear to auscultation bilaterally. No wheezes, no rales. No rhonchi. Abdomen: Positive bowel sounds. Soft, nontender, nondistended. Extremities: No edema. No cyanosis. No calf tenderness. Neurologic: The patient is alert and oriented x3. LABS: White blood cell count 14, hemoglobin of 14, hematocrit 41, platelets 233. Sodium 129, potassium 3.5, chloride 92, CO2 24, BUN 14, creatinine 0.6. ASSESSMENT AND PLAN: 1. Hyponatremia. Will give the patient a dose of Samsca today and repeat the sodium level in the morning. 2. Leukocytosis. The patient has been afebrile for the last week or so. We will check a urinalysis and urine culture. 3. Major depression with suicidal ideation. The patient will need to be assessed by a psychiatrist to be cleared from a psychiatric standpoint. We will continue with Zoloft. 4. Hypertension. Controlled. 5. Distal esophageal ring status post dilation. Stable. 6. Duodenitis with gastritis. Continue on Protonix. 7. Osteoarthritis of the right shoulder. Continue with physical therapy and range of motion exercises. DISPOSITION: Once the patient is cleared from a psychiatric standpoint by a psychiatrist, arrangements can be made for the patient to be discharged to inpatient rehabilitation.
[2016-12-15 14:57] LABS: URINE SOURCE VOIDED
[2016-12-15 15:11] LABS: BILIRUBIN URINE NEGATIVE (NEGATIVE); BLOOD URINE SMALL (NEGATIVE); COLOR YELLOW; GLUCOSE URINE NEGATIVE (NEGATIVE); LEUKOCYTES URINE MODERATE (NEGATIVE); NITRITE URINE POSITIVE (NEGATIVE); PH URINE 6.5; PROTEIN URINE NEGATIVE (NEGATIVE); SP GRAVITY URINE 1.012; TURBIDITY URINE HAZY (CLEAR); UROBILINOGEN URINE NORMAL (NORMAL)
[2016-12-15 15:12] LABS: URINE MICRO REVIEW NEEDED? YES
[2016-12-15 15:21] LABS: UR EPITHELIAL CELLS <10 /HPF (<10); URINE BACTERIA 3+ /HPF; URINE RBC 20-40 /HPF (<10)
[2016-12-15 15:37] LABS: URINE CRYSTALS CA OXALATE PRESENT
[2016-12-15] MEDS ORDERED: ROCEPHIN 1 GM/NS 50 ML IV SCH (15:45)
[2016-12-15] MEDS: SODIUM CHLORIDE 0.9% INJ SCH (17:15)
[2016-12-15] MEDS: PROTONIX IV SCH (17:15)
[2016-12-15] MEDS: ZOLOFT PO SCH (21:35)
[2016-12-15] MEDS: DULCOLAX PR SCH (22:58)
[2016-12-16] MEDS: CARAFATE LIQUID PO SCH ×4 (05:00→21:56)
[2016-12-16 07:22] LABS: AGAP 17; BUN 11 mg/dL (8-22); CHLORIDE 96 mmol/L (98-107); COSMO 271; POTASSIUM 4.2 mmol/L (3.5-5.1); SODIUM 136 mmol/L (136-145); TCO2 23 mmol/L (25-35)
[2016-12-16] MEDS: TRUSOPT 2% OPH SOLN BOTH EYES SCH ×2 (09:10→21:58)
[2016-12-16] MEDS: MIRALAX PO SCH ×2 (09:10→21:59)
[2016-12-16] MEDS: ALPHAGAN 0.2% OPHTH SOLN BOTH EYES SCH ×2 (09:10→21:59)
[2016-12-16] MEDS ORDERED: VANCOMYCIN IV PER PHARMACY MISC SCH (11:15)
--- NOTE | 2016-12-16 11:46 | PROGRESS NOTE ---
DATE: 12/15/2016 SUBJECTIVE: The patient is resting comfortably. Today he is complaining about constipation. I looked at his plate; he has not eaten much and he says he always ate light and he is not hungry. OBJECTIVE: Vital Signs: Temp 97 degrees. Blood pressure 127/70, heart rate 90, respirations 18, O2 saturation 100%. General: Elderly emaciated gentleman in no acute distress. HEENT: Mild conjunctival pallor present. Neck: Supple. Trachea in the midline. Heart: Normal first and second sounds. Lungs: Clear. Abdomen: Scaphoid with no organomegaly. No ascites. Bowel sounds present and normal. Extremities: No calf tenderness, no cyanosis or clubbing or edema. Neurological: Alert and oriented. LABS: White count of 14, hematocrit 41. BUN and creatinine are normal. IMPRESSION: 1. Slight hyponatremia, which is being corrected. 2. Leukocytosis. We are again getting cultures of various areas, including urinalysis. 3. Depression. 4. Hypertension. 5. Dysphagia has resolved, but he is not eating much and he does want to eat much or take any nutritional supplements. 6. Osteoarthritis. I have talked to the patient about the need to eat, and that it will help him with his constipation. The patient does not appear to be willing to do anything himself. I even mentioned the PEG tube. He said he will not like the idea and he does not want it. is at bedside. She understood our conversation.
[2016-12-16] MEDS ORDERED: VANCOMYCIN 1,650 MG in NS 250 ML IV ONE (13:00)
[2016-12-16] MEDS: PROTONIX IV SCH (15:34)
[2016-12-16] MEDS: SODIUM CHLORIDE 0.9% INJ SCH (15:34)
--- NOTE | 2016-12-16 15:34 | PROGRESS NOTE ---
DATE: 12/16/2016 SUBJECTIVE: Patient resting in bed. He has a poor appetite today. He has poor oral intake today. I believe it is likely secondary to a newly discovered UTI. His urine culture is growing gram-positive cocci. The final speciation is currently pending. He was started on ceftriaxone yesterday by the Primary Team for a urinary tract infection. OBJECTIVE: Vital signs: Temperature of 98 degrees, pulse of 111, respiratory rate 16, blood pressure 131/84, saturating 98% room air. General: Moderately nourished, lying in bed, in no acute distress. HEENT: No pallor. No icterus. Neck: Supple. Abdomen: Soft , nontender, nondistended. Bowel sounds are present. No guarding or rebound. Extremities: No cyanosis, clubbing, and edema. Neurologic: He is alert and awake. LABS: Hemoglobin and hematocrit is 14.8, hematocrit 41.9, white count of 14.72, platelet count of 233,000, sodium of 132, potassium 4.2, chloride 96, bicarb 90/70, BUN of 11, creatinine 0.6, glucose of 91, leukocytosis and a UTI with positive urine culture growing Gram positive cocci. PLAN: UTI: Follow up the final culture report. Continue antibiotics. 2. Distal esophageal ring status post dilation. Continue to encourage oral intake. I will start him on Ensure 3 times daily. 3. Duodenitis and gastritis. Continue Protonix for now. 4. Osteoarthritis of the right shoulder per the primary care team. 5. Major depression and suicidal ideation being monitored per the Primary Care team. The patient is on Zoloft. 6. Further records from Dr. Elizalde and Dr. Vik Taylor. [facility]
--- NOTE | 2016-12-16 17:22 | PROGRESS NOTE ---
DATE: 12/16/2016 SUBJECTIVE: The patient states that he is not hungry and has not really been eating well for the last several days. OBJECTIVE: Vital Signs: Temperature 97.6, blood pressure 111/64, heart rate 108, respirations 16, O2 saturations 97% on room air. General: This is a chronically ill-appearing, elderly male, lying in bed, in no acute distress. Head: Normocephalic, atraumatic. Heart: S1, S2. Normal. Tachycardic. Lungs: Clear to auscultation bilaterally. No wheezing. No rales. No rhonchi. Abdomen: Positive bowel sounds. Soft, nontender, nondistended. Extremities: No edema. No cyanosis. No calf tenderness. Neurologic: The patient is alert and oriented x3. LABS: Sodium 136, potassium 4.2, chloride 96, CO2 of 23, BUN 11, creatinine 0.6, glucose 91. ASSESSMENT AND PLAN: 1. Urinary tract infection. The urine culture is growing gram-positive cocci. Will start the patient on vancomycin and await the final urine culture results. 2. Hyponatremia. Resolved. 3. Major depression with suicidal ideation. We are currently awaiting a psychiatric evaluation on this patient. 4. Hypertension. Controlled. 5. Distal esophageal ring, status post dilation. Stable. 6. Duodenitis with gastritis. Continue on Protonix. 7. Osteoarthritis of the right shoulder. Continue with physical therapy.
[2016-12-16] MEDS: VITAMIN D PO SCH (21:55)
[2016-12-16] MEDS: ZOLOFT PO SCH (21:55)
[2016-12-16] MEDS: DULCOLAX PR SCH (21:59)
[2016-12-17] MEDS: CARAFATE LIQUID PO SCH ×4 (03:57→18:01)
[2016-12-17 06:10] LABS: MANUAL DIFF NEEDED? NO
[2016-12-17 06:15] LABS: BASO% 0.2 % (0.0-0.8); EOS# 0.07 X1000 (0.0-0.7); EOS% 0.4 % (0.0-10.0); HEMATOCRIT 44.3 % (42.0-52.0); HEMOGLOBIN 15.4 g/dL (14.0-18.0); IMM GRAN# 0.07 X1000 (0.0-0.04); IMM GRAN% 0.4 % (0.0-0.5); LYMPH# 1.14 X1000 (1.2-3.4); LYMPH% 6.5 % (20.5-51.1); MCH 32.6 PG (27-31); MCHC 34.8 g/dL (33-37); MCV 93.9 FL (81-99); MONO# 2.19 X1000 (0.11-0.59); MONO% 12.6 % (1.7-9.3); MPV 11.4 FL (7.4-10.4); NEUT% 79.9 % (42.2-75.2); PLT 240 X1000 (130-400); RBC 4.72 XMIL (4.7-6.1)
[2016-12-17 06:28] LABS: AGAP 14; BUN 12 mg/dL (8-22); CALCIUM 9.4 mg/dL (8.8-10.2); CHLORIDE 98 mmol/L (98-107); COSMO 274; POTASSIUM 3.7 mmol/L (3.5-5.1); SODIUM 137 mmol/L (136-145); TCO2 25 mmol/L (25-35)
[2016-12-17] MEDS: ALPHAGAN 0.2% OPHTH SOLN BOTH EYES SCH ×2 (09:40→20:18)
[2016-12-17] MEDS: TRUSOPT 2% OPH SOLN BOTH EYES SCH ×2 (09:40→20:18)
[2016-12-17] MEDS: MIRALAX PO SCH ×2 (09:41→20:17)
--- NOTE | 2016-12-17 11:25 | CONSULTATION ---
DATE OF CONSULTATION: 12/17/2016 CONCLUSION: The patient was admitted the hospital he tells me after falling. He also had GI bleeding. He has a leukocytosis which the only thing I can find that might be causing it is his enterococcal urinary tract infection. RECOMMENDATIONS: I agree with the decision to treat the patient with vancomycin. The susceptibilities of the enterococcal isolate need to be redone because there are some obvious mistakes. For example, the CHIDI of the organism against ampicillin is less than or equal to 2 but the interpretation of that is that the organism is resistant which is in correct, if that is what the actual CHIDI is. In addition, penicillin shows an CHIDI of 8 which makes it resistant but ampicillin has a less CHIDI. Both of those antibiotics are basically the same as regarding susceptibility to Enterococcus and they should either both be susceptible or both resistant but not 1 susceptible and the other resistant. PRESENT ILLNESS: The patient was unable provide a history. No family member is present. The patient was admitted to the hospital because of weight loss, malaise, diarrhea, and melena. He tells me that he fell and injured his shoulder. PAST MEDICAL HISTORY: Positive for lung cancer, gastroesophageal reflux disease, hypertension, hyperlipidemia, stroke with a subsequent right-sided weakness, glaucoma, and chronic back pain. PAST SURGICAL HISTORY: Positive for a partial pneumonectomy because of the patient's lung cancer, cervical spine and lumbar spine surgery, cataract surgery, and bilateral inguinal hernia repair. Patient has had cervical spine and lumbar spine surgery. SOCIAL HISTORY: Patient quit smoking 20-30 years ago. He does drink wine at night. He is and he and his live at home. They have a dog as a pet. REVIEW OF SYSTEMS: Eyes and ears: Patient has decreased hearing but his vision he thinks is okay. Neck: No stiffness. Pulmonary: He does not cough. He is not short of breath at rest. GI: No nausea or vomiting or diarrhea. The patient since he has been in here does not have a good appetite. Genitourinary: After the patient fell he was having difficulty passing his urine and had apparently an in-and-out catheterization. Endocrine: Patient does not have diabetes or thyroid disease. The rest of the patient's review of systems was very difficult for me to get from the patient. He is very hard of hearing and he was sleepy. BLOOD WORK: Thus far, the patient has a CBC with a white count of 17,420, hemoglobin 15.4, and platelet count 240,000. Creatinine 0.7. GFR is greater than 60. Patient had a CT scan of the abdomen, chest, and pelvis. CT scan of the chest showed prominent atherosclerosis with a dilated ascending thoracic aorta. There were pericardial calcifications. There was a small right effusion and emphysematous changes, fibrosis, and bronchiectasis in the lungs. In the abdomen and pelvis, the CT was read as being stable. PHYSICAL EXAMINATION: Vital Signs: Temperature is 97.8 degrees, pulse 111, respirations 16, blood pressure 157/102. His weight is listed at 121 pounds. General: This is a chronically ill-appearing, elderly male. He is in no acute distress. Head, eyes, ears, nose, and throat: He had decreased hearing. He could see near objects. In his mouth there were no white patches. Neck: No meningismus. Thorax: No increased AP diameter to the chest. Lungs: Clear to auscultation. Cardiovascular: Heart rate is regular. Abdomen: Soft and nontender. Neurologic: The patient can move his extremities. There is no tremor. His sensation is intact to touch. His memory as regarding his medical history was decreased. Integument: He did have some bruised and ecchymotic areas. Thank you for the consult.
--- NOTE | 2016-12-17 12:03 | PROGRESS NOTE ---
DATE: 12/17/2016 SUBJECTIVE: Patient currently resting in bed. He has decreased oral intake. He has lack of appetite. His urine culture is growing group D Enterococcus faecalis, which is sensitive to vancomycin and nitrofurantoin. We have called Dr. Schumacher to consult in that regard. OBJECTIVE: Vital Signs: Temperature 97.8, pulse 111, respiratory rate 16, blood pressure 157/102, satting 98% on room air. General Appearance: Thinly built, lying in bed in no acute distress. HEENT: No pallor. No icterus. Neck: Supple. Abdomen: Soft, nontender, nondistended. Bowel sounds are present. No guarding. No rebound. Extremities : No cyanosis, clubbing. Neurologic: Neuro-taylor, he is awake and alert. Answers simple questions. LABS: Hemoglobin 15.4, white count of. 17.42, hematocrit 44.3, platelet count of 240. Sodium 137, potassium 3.7, chloride 98, bicarbonate 20, anion gap 14, BUN of 12, creatinine 0.7, glucose of 100, calcium 9.4. IMPRESSION AND PLAN: 1. Distal esophageal ring status post dilation, but continues to have poor oral intake. We will encourage him to take Ensure 3 times daily and chew the food well. 2. Reflux disease, gastritis and duodenitis. I will continue on Protonix. 3. Urinary tract infection. Urine culture growing group D Enterococcus faecalis sensitive to vancomycin for Dr. Matt Schumacher. 4. Major depression per the primary care team. Discussed with the patient and RN. MTDD
[2016-12-17] MEDS ORDERED: VANCOMYCIN 1,350 MG in NS 250 ML IV SCH (13:00)
[2016-12-17] MEDS: SODIUM CHLORIDE 0.9% INJ SCH (15:02)
[2016-12-17] MEDS: PROTONIX IV SCH (15:03)
--- NOTE | 2016-12-17 15:19 | PROGRESS NOTE ---
DATE: 12/17/2016 SUBJECTIVE: The patient is resting comfortably in bed. He is tachycardic. The patient denies feeling depressed today and also denies having any suicidal ideation today. OBJECTIVE: Vital Signs: Temperature 98 degrees, blood pressure 149/85, heart rate 116, respirations 18, O2 saturations 98% on room air. General: This is a chronically ill-appearing, elderly male, lying in bed, in no acute distress. Head: Normocephalic atraumatic. Heart: S1, S2. Normal. Tachycardic. Lungs: Clear to auscultation bilaterally. No wheezes, no rales. No rhonchi. Abdomen: Positive bowel sounds. Soft, nontender, nondistended. Extremities: No edema, no cyanosis, no calf tenderness. Neurologic: The patient is alert and oriented x3. No focal neurologic deficits noted. LABS: White blood cell count 17, hemoglobin 15, hematocrit 44, platelets 240, 000. Sodium 137, potassium 3.7, chloride 98, CO2 25, BUN 12, creatinine 0.7. Glucose 100. ASSESSMENT AND PLAN: 1. Urinary tract infection secondary to Enterococcus faecalis. Continue on IV vancomycin. 2. Hyponatremia. Resolved. 3. Major depression with suicidal ideation. Today the patient denies having any suicidal ideation and states that he does not feel depressed today. Continue on Zoloft. 4. Hypertension. Controlled. 5. Distal esophageal ring status post dilation. Stable. 6. Duodenitis with gastritis. Continue on Protonix. 7. Leukocytosis secondary to UTI. Continue on IV vancomycin. 8. Deep vein thrombosis prophylaxis. Continue with SCDs. 9. Continue with physical therapy. Disposition. I spoke to the patient's via the phone and updated her on the patient's progress. I told her that we would need to keep the patient thru the weekend to treat his urinary tract infection. She stated that she was fine with doing that. MTDD
[2016-12-17] MEDS: ZOLOFT PO SCH (20:14)
[2016-12-17] MEDS: DULCOLAX PR SCH (20:18)
[2016-12-18] MEDS: CARAFATE LIQUID PO SCH ×6 (00:47→22:50)
[2016-12-18] MEDS: NORCO-5 PO PRN (05:08)
[2016-12-18] MEDS: MIRALAX PO SCH ×2 (08:39→20:27)
[2016-12-18] MEDS: TRUSOPT 2% OPH SOLN BOTH EYES SCH ×2 (08:40→20:26)
[2016-12-18] MEDS: ALPHAGAN 0.2% OPHTH SOLN BOTH EYES SCH ×2 (08:41→20:26)
--- NOTE | 2016-12-18 10:00 | PROGRESS NOTE ---
DATE: 12/18/2016 PRESENT ILLNESS: The patient has leukocytosis, and I think his enterococcal urinary tract infection may be responsible for the leukocytosis. Because he is having a leukocytosis, I think we have to assume that his kidneys are involved with the infection. Yesterday, the urine culture results were amended. Initially the isolate was put down as being resistant to ampicillin, but this was corrected and now the patient's Enterococcus is susceptible to ampicillin, as well as penicillin and vancomycin. MEDICATIONS: Currently, the patient is receiving IV vancomycin. PHYSICAL EXAMINATION: Vital Signs: Temperature is 98.6 degrees, pulse 102, respirations 18 and blood pressure 134/80. General: This is a chronically ill-appearing, elderly male. He is in no acute distress. Lungs: Clear to auscultation. Cardiovascular: Heart rate was regular and at times there appeared to be a prolonged pause between heartbeats. Abdomen: Abdomen and flank soft and nontender. Neurologic: Patient is awake. He can move his extremities. LAB AND X-RAY: No new lab or x-ray. ASSESSMENT AND PLAN: As mentioned above, the susceptibility studies on the urine isolate have been amended for ampicillin and the organism is indeed susceptible to ampicillin. There is no new lab or radiographic study today. My assessment is to switch the patient from vancomycin to ampicillin intravenously in a dose of 1 g every 6 hours. When the patient is able to go home, I would suggest switching him to amoxicillin 500 mg p.o. every 8 hours for a total treatment course with the ampicillin and amoxicillin of 14 days. COMORBIDITIES: The patient's comorbidities include the fact that he is very elderly, he has had lung cancer as well. [facility]
[2016-12-18] MEDS: AMPICILLIN 1 GM/NS 50 ML IV SCH ×3 (11:20→20:27)
[2016-12-18 12:03] LABS: MANUAL DIFF NEEDED? NO
[2016-12-18 12:11] LABS: BASO% 0.2 % (0.0-0.8); EOS# 0.11 X1000 (0.0-0.7); EOS% 0.8 % (0.0-10.0); HEMATOCRIT 41.3 % (42.0-52.0); HEMOGLOBIN 14.4 g/dL (14.0-18.0); IMM GRAN# 0.05 X1000 (0.0-0.04); IMM GRAN% 0.3 % (0.0-0.5); LYMPH# 1.01 X1000 (1.2-3.4); MCHC 34.9 g/dL (33-37); MCV 94.7 FL (81-99); MONO# 1.76 X1000 (0.11-0.59); MONO% 12.2 % (1.7-9.3); MPV 11.5 FL (7.4-10.4); NEUT% 79.5 % (42.2-75.2); PLT 233 X1000 (130-400); RBC 4.36 XMIL (4.7-6.1)
[2016-12-18 12:33] LABS: AGAP 8; BUN 13 mg/dL (8-22); CALCIUM 8.9 mg/dL (8.8-10.2); CHLORIDE 99 mmol/L (98-107); COSMO 270; POTASSIUM 3.7 mmol/L (3.5-5.1); SODIUM 135 mmol/L (136-145); TCO2 28 mmol/L (25-35)
--- NOTE | 2016-12-18 13:38 | PROGRESS NOTE ---
DATE: 12/18/2016 SUBJECTIVE: The patient is resting comfortably in bed. He has no complaints today. OBJECTIVE: Vital Signs: Temperature 97 degrees, blood pressure 130/90, heart rate 101, respirations 18, O2 saturation is 98% on room air. General: This is an elderly male, lying in bed in no acute distress. HEENT: Head normocephalic, atraumatic. Heart: S1 and S2 normal, tachycardic. Lungs: Clear to auscultation bilaterally. No wheezing. No rales. Abdomen: Positive bowel sounds. Soft, nontender, nondistended. Extremities: No edema. No cyanosis. No calf tenderness. Neurologic: The patient is alert and oriented x3. LABORATORIES: White blood cell count 14, hemoglobin 14, hematocrit 41, platelets 233,000. Sodium 135, potassium 3.7, chloride 99, CO2 of 28, BUN 13, creatinine 0.7, glucose 95. ASSESSMENT AND PLAN: 1. Urinary tract infection secondary to Enterococcus faecalis. The patient has been switched to IV ampicillin by Dr. Schumacher. We will continue to monitor the patient closely. 2. Leukocytosis. Slowly improving. Continue on the current IV antibiotic regimen as directed by Dr. Schumacher. 3. Major depression with suicidal ideation. The patient denies feeling depressed today and he denies having any suicidal ideation today. Continue on Zoloft. 4. Hypertension. Controlled. 5. Duodenitis with gastritis. Continue on Protonix. 6. Distal esophageal ring status post dilation. Stable. 7. Deep vein thrombosis prophylaxis. Continue with SCDs. 8. Continue with physical therapy. DISPOSITION: We will continue to treat the patient with IV antibiotics over the weekend and repeat a CBC on Wednesday. If the CBC is normal, the patient should be medically stable for discharge to rehabilitation.
[2016-12-18] MEDS: PROTONIX IV SCH (16:17)
[2016-12-18] MEDS: SODIUM CHLORIDE 0.9% INJ SCH (16:17)
[2016-12-18] MEDS: ZOLOFT PO SCH (20:25)
[2016-12-18] MEDS: DULCOLAX PR SCH (20:27)
[2016-12-19] MEDS: AMPICILLIN 1 GM/NS 50 ML IV SCH ×4 (02:32→21:53)
[2016-12-19] MEDS: CARAFATE LIQUID PO SCH ×4 (04:35→21:53)
[2016-12-19] MEDS: TRUSOPT 2% OPH SOLN BOTH EYES SCH ×2 (09:09→21:53)
[2016-12-19] MEDS: ALPHAGAN 0.2% OPHTH SOLN BOTH EYES SCH ×2 (09:09→21:53)
[2016-12-19] MEDS: MIRALAX PO SCH ×2 (09:09→21:54)
[2016-12-19] MEDS: PROTONIX IV SCH (15:18)
[2016-12-19] MEDS: SODIUM CHLORIDE 0.9% INJ SCH (15:19)
--- NOTE | 2016-12-19 16:08 | PROGRESS NOTE ---
DATE: 12/19/2016 SUBJECTIVE: The patient is sitting up in bed and states that he feels pretty good today. He did eat his breakfast, and he is having regular bowel movements. OBJECTIVE: Vital signs: Temperature 97.8, blood pressure 132/77, heart rate 109, respirations 22. O2 saturation is 100% on room air. General: This is an elderly male lying comfortably in bed in no acute distress. Head: Normocephalic, atraumatic. Heart: S1, S2 normal. Regular rate and rhythm. Lungs: Clear to auscultation bilaterally. No wheezing. No rales. No rhonchi. Abdomen: Positive bowel sounds, soft, nontender, nondistended. Extremities: No edema. No cyanosis. No calf tenderness. Neurologic: The patient is alert and oriented x3. LABORATORY: White blood cell count 14, hemoglobin 14, hematocrit 41, platelets 233, sodium 135, potassium 3.7, chloride 99, CO2 28, BUN 13, creatinine 0.7. ASSESSMENT AND PLAN: 1. Urinary tract infection secondary to Enterococcus faecalis. The patient's white blood cell count is slowly improving. Continue on ampicillin as ordered by Dr. Schumacher. 2. Hypertension. Controlled. 3. Major depression with suicidal ideation. The patient denies having any depression today, and he also denies having any suicidal ideation today. Continue on Zoloft. 4. Duodenitis with gastritis. Continue on Protonix. 5. Distal esophageal ring status post dilation. Stable. 6. Deep venous thrombosis prophylaxis. Continue with sequential compression devices. 7. Continue with physical therapy. 8. Disposition. The patient should be stable for discharge to rehabilitation on Wednesday.
[2016-12-19] MEDS: ZOLOFT PO SCH (21:53)
[2016-12-19] MEDS: DULCOLAX PR SCH (21:54)
[2016-12-20] MEDS: CARAFATE LIQUID PO SCH ×5 (04:52→23:29)
[2016-12-20] MEDS: AMPICILLIN 1 GM/NS 50 ML IV SCH ×3 (04:52→14:47)
[2016-12-20] MEDS: TRUSOPT 2% OPH SOLN BOTH EYES SCH ×2 (09:33→21:27)
[2016-12-20] MEDS: MIRALAX PO SCH ×2 (09:33→21:29)
[2016-12-20] MEDS: ALPHAGAN 0.2% OPHTH SOLN BOTH EYES SCH ×2 (09:33→21:27)
--- NOTE | 2016-12-20 14:36 | PROGRESS NOTE ---
DATE: 12/20/2016 SUBJECTIVE: The patient is sitting up eating breakfast. He has no complaints today. He states that he feels pretty good. OBJECTIVE: Vital Signs: Temperature 97.8 degrees, blood pressure 104/67, heart rate 106, respirations 12, O2 saturations 99% on room air. General: This is an elderly male sitting up in bed eating breakfast. Head: Normocephalic, atraumatic. Heart: S1, S2. Normal. Regular rate and rhythm. Lungs: Clear to auscultation bilaterally. No wheezes, no rales. No rhonchi. Abdomen: Positive bowel sounds. Soft, nontender, nondistended. Extremities: No edema. No cyanosis. No calf tenderness. Neurologic: The patient is alert oriented x3. No focal neurologic deficits noted. LABS: None. ASSESSMENT AND PLAN: 1. Urinary tract infection secondary to Enterococcus faecalis. Continue on IV ampicillin as directed by Dr. Schumacher. 2. Hypertension. Controlled. 3. Major depression with suicidal ideation. The patient states that he does not feel depressed today. He denies having any suicidal ideation today. 4. Duodenitis and gastritis. Continue on Protonix. 5. Distal esophageal ring status post dilation. Stable. 6. Deep vein thrombosis prophylaxis. Continue with SCDs. 7. Continue with physical therapy. 8. Disposition. The patient should be stable for discharge to rehab tomorrow.
[2016-12-20] MEDS: PROTONIX IV SCH (16:41)
[2016-12-20] MEDS: SODIUM CHLORIDE 0.9% INJ SCH (16:41)
[2016-12-20] MEDS: DULCOLAX PR SCH (21:28)
[2016-12-20] MEDS: AMPICILLIN 1 GM in NS 100 ML IV SCH (21:28)
[2016-12-20] MEDS: ZOLOFT PO SCH (21:28)
[2016-12-21] MEDS: CARAFATE LIQUID PO SCH ×2 (04:08→11:33)
[2016-12-21] MEDS: AMPICILLIN 1 GM in NS 100 ML IV SCH ×3 (04:08→14:11)
[2016-12-21] MEDS: ALPHAGAN 0.2% OPHTH SOLN BOTH EYES SCH (09:51)
[2016-12-21] MEDS: MIRALAX PO SCH (09:52)
[2016-12-21] MEDS: TRUSOPT 2% OPH SOLN BOTH EYES SCH (09:52)
--- NOTE | 2016-12-21 14:41 | DISCHARGE SUMMARY ---
ADMISSION DATE: 12/02/2016 DISCHARGE DATE: 12/21/2016 CONSULTATION: Dr. Jorge Luis Dawson with gastroenterology. Dr. Matt Schumacher with infectious disease. PERTINENT PROCEDURES: 1. EGD with esophageal dilatation with TTS balloon performed by Dr. Jorge Luis Dawson. 2. Upper extremities CT that showed at least mild longstanding arthritic changes to the shoulder but no acute bony injury to the right upper extremity. 3. Chest, abdomen, and pelvis showed prominent atherosclerosis with dilated ascending thoracic aorta, prominent pericardial calcifications, small right effusion with emphysema changes, fibrosis, bronchial atelectasis, large hiatal hernia. CT of the abdomen and pelvis was stable. DISCHARGE DIAGNOSIS: 1. Urinary tract infection secondary to enterococcus faecalis. Patient was initially on vancomycin, switched IV ampicillin, and will now go to p.o. amoxicillin for a total of 14 days. 2. Hypertension, controlled. 3. Major depression with suicidal ideation. Patient states that he does not feel depressed and he is not having any type of suicidal ideations today. 4. Duodenitis and gastritis. Continue PPI. 5. Distal esophageal ring status post dilatation, stable. The patient will need to continue with Ensures and increased p.o. intake. HOSPITAL COURSE: Mr. Oh is an 89-year-old male, I believe, who was a direct admit from Dr. Vik Taylor's office with a history of lung cancer status post partial pneumonectomy, hypertension, GERD, COPD. Originally presented to Dr. Taylor's office with worsening malaise and weakness over the past few months with a weight loss of 25 pounds in the last 6 months, diarrhea, dark and tarry stools. He had actually been evaluated in the ED 2 weeks prior to his admission for a fall. At that time he was complaining of right shoulder pain. He had a CT of the shoulder as well as an x-ray done that did not show anything acute. The patient was directly admitted from Dr. Taylor's office with a consult with Dr. Arango with orthopedics in reference to the right shoulder pain. His assessment was a contusion of the right shoulder and osteoarthritis of the right shoulder. They did inject his shoulder with a solution of Depo-Medrol, Marcaine, lidocaine, and ordered physical therapy for general range of motion, and after discharge Dr. Arango would like to follow up with him in 3 weeks. The patient also underwent an EGD dilatation performed by Dr. Dawson and will also need a repeat EGD as well as continue on PPI as well as Carafate. The patient was also place on aspiration precautions and advised to chew food well and stay on aspiration precautions, as well as to avoid any excessive teas, coffees, soda, tomatoes, onions, spicy foods, and avoid any NSAIDs. During patient's initial assessment he did express with the nurse practitioner as well as Dr. Elizalde of the suicidal ideations as well as depression. Given his history of depression, that prompted the initial conversation about suicidal ideation. He stated that he did and that he was in a lot of pain and that at times he wishes he would . He stated that he had plans in the past if he had a gun he would shoot himself or he would just wish that he could go to sleep and not wake up. Per his , she states that he has made these complaints earlier on the day of admission. He was also complaining of right shoulder pain. The patient was initiated on Zoloft. I believe at some point [facility] did come in and evaluated the patient and they were not recommending long-term care. The patient has been awaiting rehab placement since about the or 07 of December. Due to the patient also expressing his history of depression as well as suicidal ideations on admission, the stated was prompted to come in. They did their evaluation. Patient has expressed every day that he is not having any suicidal ideations and that he no longer feels depressed. The patient did continue in the hospital with a urinary tract infection secondary to enterococcus faecalis. He was initiated on vancomycin and switched to IV ampicillin by Dr. Schumacher and at discharge he will need a full 14 day course of amoxicillin p.o. every 8 hours. The patient has had a bed at [facility] now for some time. We have been awaiting the state's official letter for approval for the patient to be discharged to rehab. Today we have their approval. He has been afebrile. Patient's white count is down from 14. He is medically cleared to be discharged to [facility]. VITAL SIGNS: Temperature is 97.6 degrees, heart rate 96, respirations 16, blood pressure is 158/97, O2 is 98% on room air. DISCHARGE DIET: Mechanical soft with Ensure t.i.d. DISCHARGE MEDICATIONS: 1. Alphagan ophthalmic solution 1 drop both eyes b.i.d. 2. Trusopt ophthalmic solution 1 drop both eyes b.i.d. 3. Plavix 75 mg p.o. q.a.m. 4. Senokot 1 each p.o. daily. 5. Tylenol PM 2 each p.o. at bedtime p.r.n. 6. Amoxicillin 500 mg p.o. q.8 hours for 13 days. 7. Carafate liquid 1 g p.o. q.6 hours. 8. Toprol-XL 25 mg p.o. daily. 9. MiraLAX 17 g p.o. b.i.d. 10. Protonix 40 mg p.o. daily. 11. Vitamin D2 25037 units p.o. daily. 12. Zoloft 25 mg p.o. at bedtime. FOLLOWUP: The patient is being discharged to [facility] rehab he will need to follow up with Dr. Vik Taylor in 2 weeks. He will need to follow up with Dr. Dawson in 2 weeks as well as follow up with Dr. Arango. Patient can return to the ED for any worsening of symptoms. DISCHARGE TIME: Greater than 30 minutes. Dictated by CYRUS Mi for Kee Blackwood MD
[2016-12-21 16:30] VITALS: BP 156/92
--- NOTE | 2017-01-12 17:10 | DISCHARGE SUMMARY ---
ADMISSION DATE: 12/02/2016 DISCHARGE DATE: 12/21/2016 DISCHARGE SUMMARY ADDENDUM: The patient was found to have melena and weight loss, felt to have severe protein calorie malnutrition on admission. cc: Kee Blackwood MD
== END 2016-12-21 16:29 ==
LOC: DIRADM 14:53 → 4N 15:03
PROVIDERS: ATTEND Internal Medicine

== ENCOUNTER 2017-05-06 09:57 | Inpatient (IN) ==
[2017-05-06 10:42] LABS: BASO% 0.2 % (0.0-0.8); HEMATOCRIT 38.4 % (42.0-52.0); HEMOGLOBIN 12.8 g/dL (14.0-18.0); IMM GRAN# 0.46 X1000 (0.0-0.04); IMM GRAN% 1.5 % (0.0-0.5); LYMPH# 1.71 X1000 (1.2-3.4); LYMPH% 5.4 % (20.5-51.1); MANUAL DIFF NEEDED? YES; MCHC 33.3 g/dL (33-37); MONO# 2.58 X1000 (0.11-0.59); MONO% 8.1 % (1.7-9.3); MPV 11.4 FL (7.4-10.4); NEUT% 84.8 % (42.2-75.2); PLT 288 X1000 (130-400)
[2017-05-06 10:53] LABS: ALBUMIN 4.1 g/dL (3.5-5.0); CALCIUM 10.3 mg/dL (8.8-10.2); POTASSIUM 4.9 mmol/L (3.5-5.1); TOTAL BILIRUBIN 0.52 mg/dL (0.20-1.00); TOTAL PROTEIN 7.9 g/dL (6.3-8.3)
[2017-05-06] MEDS ORDERED: NS 2,000 ML ONE (10:55)
[2017-05-06 10:56] LABS: BANDS 2 % (0-1); LARGE PLATELETS 1+; LYMPHS 4 % (21-51); MONO 5 % (1-9)
--- NOTE | 2017-05-06 10:57 | Diag Imaging Result Doc PS360 ---
EXAM: CHEST-PORTABLE HISTORY: cough, conjestion TECHNIQUE: AP portable erect at 1049 COMMENT: The inspiration is better than on 01/07/2017. There is what appears to be a large hiatal hernia. There is fibrosis around both lungs. There is an area of increased atelectasis or fibrosis in the upper lobe on the right which may be associated with a large bulla or cavity. This was present at the time the previous study. IMPRESSION: Pulmonary fibrosis and postsurgical changes in the right upper lobe. Large hiatal hernia. Electronically signed by Fredy Zhang 05/06/2017 10:54 AM
[2017-05-06 11:17] LABS: URINE CULTURE NEEDED? NO; URINE MICRO REVIEW NEEDED? NO; URINE SOURCE CATH
[2017-05-06 11:22] LABS: UR EPITHELIAL CELLS <10 /HPF (<10); URINE BACTERIA NEGATIVE /HPF; URINE RBC 20-40 /HPF (<10); URINE WBC <10 /HPF (<10)
[2017-05-06 11:23] LABS: INR 1.1; PROTIME 11.6 Seconds (9.2-11.7); PTT 27.3 Seconds (22.0-36.0)
[2017-05-06] MEDS ORDERED: NS 1,000 ML IV ONE ×2 (11:27→12:08)
[2017-05-06] MEDS ORDERED: ZOSYN 3.375 GM/NS 3.375 GM/50 ML IVPB IV ONE (11:28)
[2017-05-06] MEDS ORDERED: VANCOMYCIN 1 GM/NS 1 GM/250 ML IVPB IV ONE (11:28)
[2017-05-06 11:30] LABS: BILIRUBIN URINE NEGATIVE (NEGATIVE); BLOOD URINE LARGE (NEGATIVE); COLOR ORANGE; GLUCOSE URINE NEGATIVE (NEGATIVE); LEUKOCYTES URINE NEGATIVE (NEGATIVE); NITRITE URINE NEGATIVE (NEGATIVE); PH URINE 5.5; PROTEIN URINE 100 mg/dL (NEGATIVE); SP GRAVITY URINE 1.026; TURBIDITY URINE HAZY (CLEAR); UROBILINOGEN URINE NORMAL (NORMAL)
[2017-05-06] MEDS ORDERED: MORPHINE ONE (11:45)
--- NOTE | 2017-05-06 11:49 | PROVIDER DOCUMENTATION ---
This chart was entered by Marbella Gross Scribe, acting as scribe for Emerson Gonzalez MD. HPI-Respiratory General - General Chief Complaint: Shortness of Breath Stated Complaint: FALL, FOUND ON FLOOR Time Seen by Provider: 05/06/17 10:04 Source: patient Allergies/Adverse Reactions: Patient Allergies Allergy/AdvReac Type Severity Reaction Status Date / Time No Known Allergies Allergy Verified 02/10/17 18:18 Home Medications: Home Medication List Medication Instructions Recorded Confirmed Last Taken Type Brimonidine 0.2% Ophth Soln 1 drop BOTH EYES BID 09/02/16 05/06/17 05/06/17 History [Alphagan 0.2% Ophth Soln] Clopidogrel Bisulfate [Clopidogrel] 75 mg PO QAM 12/02/16 05/06/17 05/06/17 History Metoprolol Succinate [Toprol Xl] 25 mg PO DAILY #30 tab.er.24h 12/04/1605/06/17 Rx Pantoprazole [Protonix] 40 mg PO DAILY@0700 #30 tablet 12/04/16 05/06/17 Rx Sertraline [Zoloft] 25 mg PO QHS #30 tablet 12/04/16 05/06/17 1 Day Ago Rx Acetaminophen/Diphenhydramine 2 each PO HS PRN PRN #0 tablet 12/14/16 05/06/17 02/10/17 08:00 Rx [Tylenol Pm] Polyethylene Glycol 3350 [Miralax] 17 gm PO BID #0 powder, packet 12/14/1605/06 1 Day Ago Rx Sennosides/Docusate Sodium 1 each PO DAILY PRN PRN #0 tablet 12/14/16 05/06/17 1 Day Ago Rx [Pericolace] CephALEXIN [Keflex] 250 mg PO 4XDAY 05/06/17 05/06/17 05/06/17 History Sulfamethoxazole/Trimethoprim 1 each PO 05/06/17 05/06/17 History [Bactrim Ds Tablet] - History of Present Illness-Resp Nature of Presenting Problem: Pt is a 89 year old male who came to the ED with a cc of SOB and falling last night. Pt lives in an assisted living and was found on the floor last night and busted open his right elbow. Pt this morning was sent to the ED because his lungs "sounded wet". Pt has MERSA on his right forearm and is being treated. Quality of Pain: reports: none Onset/Duration: reports: last night Timing: reports: still present Exposure: reports: unknown cause Cough Quality/Degree: reports: mild Current Respiratory Medication Therapy: Initiated none Modifying Factors: improves with: coughing Associated Symptoms: reports: shortness of breath, short of breath Similar Symptoms Previously?: Yes Recently seen or treated by another doctor?: No Review of Systems - Adult - REVIEW OF SYSTEMS - ADULT Constitutional: reports: fatique. denies: chills, fever Eyes: reports: no symptoms reported Ears, Nose, Mouth & Throat: reports: no symptoms reported Cardiovascular: reports: syncope. denies: chest pain, irregular heart rate Respiratory: reports: cough, shortness of breath. denies: dyspnea on exertion, pleurisy, wheezing Gastrointestinal: reports: no symptoms reported Genitourinary: reports: no symptoms reported Musculoskeletal: reports: no symptoms reported Integumentary: denies: mole changes, skin thickening Neurological: reports: no symptoms reported Psychiatric: reports: no symptoms reported Endocrine: reports: no symptoms reported Hematologic/Lymphatic: reports: no symptoms reported Allergic/Immunologic: reports: no symptoms reported All Other Systems: Reviewed and Negative Past History - Adult - PAST MEDICAL HISTORY-ADULT Review of Records: reports: Old Records Reviewed, Nursing Assessment Review Major Childhood Illnesses: reports: denies history Cardiovascular: reports: HTN, hyperlipidemia 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) Gastrointestinal: reports: denies history Obstetrical/Gynecological: reports: denies history Genitourinary: reports: denies history Musculoskeletal: reports: denies history Neurological: reports: CVA Endocrine/Immune: reports: denies history Other Conditions: reports: denies history - PRIOR SURGERIES/PROCEDURES Surgical/Procedure History: reports: hernia repair, orthopedic (extremity), other (cataract repair) - IMMUNIZATION STATUS Childhood Immunizations: See Nurse Assessment Flu Vaccine: See Nurse Assessment - FAMILY HISTORY Family History: reviewed, not pertinent Physical Exam-General - PHYSICAL EXAM-ADULT Initial Vital Signs Reviewed: Yes - CONSTITUTIONAL General Appearance: alert, mild distress, cachetic - EYES Eyes: PERRL/EOMI, pink conjunctivae - HEAD, EARS, NOSE, MOUTH & THROAT HENMT: normocephalic/atraumatic, moist mucous membranes, normal ENT inspection - NECK Neck: supple, normal inspection - RESPIRATORY Respiratory: rhonchi - CARDIOVASCULAR Cardiovascular: normal peripheral pulses, regular rate, rhythm, no edema - GASTROINTESTINAL (ABDOMEN) Abdominal Exam: normal bowel sounds, non tender, soft - LYMPHATIC Lymphatic: no adenopathy - MUSCULOSKELETAL Back Exam: normal inspection, no CVA tenderness, no vertebral tenderness Extremity: normal range of motion, non-tender - SKIN Integumentary: normal color, normal turgor, warm/dry, laceration(s) (to right elbow), other (skin evulsion on right forearm) - NEUROLOGIC Neurologic: grossly normal, no motor/sensory deficits - PSYCHIATRIC Psych/Mental Status: normal mood/affect, normal thought content, normal thought process, oriented x 3 Progress - PLAN OF CARE/RESULTS Progress/Plan/Lab Results: Vital Signs - 8 hr 05/06/17 10:22 Temperature 98.3 F Pulse Rate 121 H Respiratory Rate 36 H Blood Pressure 101/76 O2 Sat by Pulse Oximetry 95 Laboratory Results - last 24 hr 05/06/17 05/06/17 05/06/17 10:12 10:12 10:12 WBC 31.69 H RBC 4.00 L Hgb 12.8 L Hct 38.4 L MCV 96.0 MCH 32.0 H MCHC 33.3 RDW Std Deviation 14.3 Plt Count 288 MPV 11.4 H Immature Gran % (Auto) 1.5 H Neut % (Auto) 84.8 H Lymph % (Auto) 5.4 L Ellis % (Auto) 8.1 Eos % (Auto) 0.0 Baso % (Auto) 0.2 Immature Gran # (Auto) 0.46 H Neut # (Auto) 26.87 H Lymph # (Auto) 1.71 Ellis # (Auto) 2.58 H Eos # (Auto) 0.00 Baso # (Auto) 0.07 Segmented Neutrophils 89 H Band Neutrophils 2 H Lymphocytes 4 L Monocytes 5 Pathologist Review Large Platelets 1+ PT INR PTT (Actin FS) Sodium 138 Potassium 4.9 Chloride 99 Carbon Dioxide 17 L Anion Gap 22 BUN 32 H Creatinine 1.7 H Estimated GFR/1.73 m2 38 BUN/Creatinine Ratio 19 Glucose 181 H Calculated Osmolality 287 Calcium 10.3 H Total Bilirubin 0.52 AST 32 ALT 22 Alkaline Phosphatase 69 Creatine Kinase Troponin T Total Protein 7.9 Albumin 4.1 Globulin 3.8 Albumin/Globulin Ratio 1.1 Plasma Lactate 6.6 H Urine Source Urine Color Urine Turbidity Urine pH Ur Specific [place] Urine Protein Ur Glucose (Stick) Ur Ketones (Stick) Urine Blood Urine Nitrite Urine Bilirubin Urobilinogen Dipstick Urine Leukocytes Urine WBC (Auto) Urine RBC (Auto) U Epithel Cells (Auto) Urine Bacteria (Auto) 05/06/17 05/06/17 05/06/17 10:12 10:12 10:12 WBC RBC Hgb Hct MCV MCH MCHC RDW Std Deviation Plt Count MPV Immature Gran % (Auto) Neut % (Auto) Lymph % (Auto) Ellis % (Auto) Eos % (Auto) Baso % (Auto) Immature Gran # (Auto) Neut # (Auto) Lymph # (Auto) Ellis # (Auto) Eos # (Auto) Baso # (Auto) Segmented Neutrophils Band Neutrophils Lymphocytes Monocytes Pathologist Review Large Platelets PT 11.6 INR 1.10 PTT (Actin FS) 27.3 Sodium Potassium Chloride Carbon Dioxide Anion Gap BUN Creatinine Estimated GFR/1.73 m2 BUN/Creatinine Ratio Glucose Calculated Osmolality Calcium Total Bilirubin AST ALT Alkaline Phosphatase Creatine Kinase 53 Troponin T < 0.010 Total Protein Albumin Globulin Albumin/Globulin Ratio Plasma Lactate Urine Source Urine Color Urine Turbidity Urine pH Ur Specific [place] Urine Protein Ur Glucose (Stick) Ur Ketones (Stick) Urine Blood Urine Nitrite Urine Bilirubin Urobilinogen Dipstick Urine Leukocytes Urine WBC (Auto) Urine RBC (Auto) U Epithel Cells (Auto) Urine Bacteria (Auto) 05/06/17 11:10 WBC RBC Hgb Hct MCV MCH MCHC RDW Std Deviation Plt Count MPV Immature Gran % (Auto) Neut % (Auto) Lymph % (Auto) Ellis % (Auto) Eos % (Auto) Baso % (Auto) Immature Gran # (Auto) Neut # (Auto) Lymph # (Auto) Ellis # (Auto) Eos # (Auto) Baso # (Auto) Segmented Neutrophils Band Neutrophils Lymphocytes Monocytes Pathologist Review Large Platelets PT INR PTT (Actin FS) Sodium Potassium Chloride Carbon Dioxide Anion Gap BUN Creatinine Estimated GFR/1.73 m2 BUN/Creatinine Ratio Glucose Calculated Osmolality Calcium Total Bilirubin AST ALT Alkaline Phosphatase Creatine Kinase Troponin T Total Protein Albumin Globulin Albumin/Globulin Ratio Plasma Lactate Urine Source CATH Urine Color ORANGE Urine Turbidity HAZY Urine pH 5.5 Ur Specific [place] 1.026 Urine Protein 100 A Ur Glucose (Stick) NEGATIVE Ur Ketones (Stick) NEGATIVE Urine Blood LARGE A Urine Nitrite NEGATIVE Urine Bilirubin NEGATIVE Urobilinogen Dipstick NORMAL Urine Leukocytes NEGATIVE Urine WBC (Auto) <10 Urine RBC (Auto) 20-40 A U Epithel Cells (Auto) <10 Urine Bacteria (Auto) NEGATIVE Orders Category Date Time Status DNR [Resuscitation Status] Routine Care 05/06/17 10:37 Ordered CHEST-PORTABLE [RAD] Stat Exams 05/06/17 10:35 Completed BLOOD CULTURE [BLDCUL] Stat Lab 05/06/17 10:12 Ordered CBC WITH DIFF [HEME] Stat Lab 05/06/17 10:12 Completed CK PROFILE [SP CHEM] Stat Lab 05/06/17 10:12 Completed CMP [COMPREHENSIVE METABOLIC PANEL] [CHEM] Stat Lab 05/06/17 10:12 Completed LACTATE, PLASMA [CHEM] Stat Lab 05/06/17 10:12 Received PROTIME WITH INR [COAG] Stat Lab 05/06/17 10:12 Completed PTT [COAG] Stat Lab 05/06/17 10:12 Completed TROPONIN T Stat Lab 05/06/17 10:12 Completed URINALYSIS W/POSS RFLX CULT-1 [URINALYSIS] Stat Lab 05/06/17 11:10 Completed 0.9% Sodium Chloride Inj [Ns] 1,000 ml Med 05/06/17 10:55 Discontinued .ROUTE As Directed 0.9% Sodium Chloride Inj [Ns] 1,000 ml Med 05/06/17 11:27 Active IV 999 mls/hr Morphine Med 05/06/17 11:36 Ordered 2 mg IV Q2H PRN PRN Piperacil/Tazobact 3.375 gm/Ns [Zosyn 3.375 gm/Ns] Med 05/06/17 11:28 Active 3.375 gm in 50 ml IV NOW Vancomycin 1 gm/Ns Med 05/06/17 11:28 Active 1 gm in 250 ml IV NOW EKG [EKG] Stat Ther 05/06/17 10:48 Ordered Result Diagrams: 05/06/17 10:12 05/06/17 10:12 - XRAY 1 XRAY Study: Chest Impression: Abnormal, See EMR Report - CONSULTS/PCP/HOSPITALIST Notification #1 *Consult/PCP/Hospitalist*: Dr Samuels Time Discussed: 11:44 Consult Disposition: Will see in ED Departure - Departure Date of Disposition Decision: 05/06/17 Time of Disposition Decision: 11:45 DIAGNOSIS: Septicemia Disposition: ADMITTED INPATIENT 09 Certified Medical Emergency: Emergent Condition: Poor Referrals and Follow-Ups: Vik Taylor DO [Primary Care Provider] - - Critical Care Note This patient required my direct & personal management of CC.: Yes Total Time (mins): 30 Critical Care Statement: This patient required my direct personal management to treat or rule out processes, the absence of which, could potentiallly result in sudden, clinically significant life or limb threatening deterioration. This chart was documented by the indicated scribe, (Marbella Gross Scribe) and accurately reflects the services I performed and decisions made by me, Emerson Gonzalez MD, as attested by the provider's signature.
[2017-05-06] MEDS: MORPHINE IV PRN ×3 (11:54→21:58)
[2017-05-06 12:38] LABS: ALLEN TEST YES; BE -9.3 mmoll (-3.0-3.0); BLOOD TYPE ARTERIAL; DRAW SITE L RADIAL; METHB 1.4 % (0.0-1.5); O2(CT) 15.5 mL/dL (15.0-23.0); PCO2(98.6) 24 mmHg (35-45); PO2(98.6) 86 mmHg (60-100); SAMPLE BLOOD; THB 11.5 g/dL (11.5-17.4); pH(98.6) 7.38 (7.35-7.45)
[2017-05-06 12:40] LABS: MODALITY CANNULA
--- NOTE | 2017-05-06 13:33 | Diag Imaging Result Doc PS360 ---
EXAM: HEAD W/O CONTRAST HISTORY: ams TECHNIQUE: CT of the head without contrast COMMENT: There is patchy lucency in the white matter of both hemispheres with some cortical encephalomalacia in the left parietal and frontal regions. There is also focal lucency in the occipital white matter on the left. No evidence of bleed or abnormal extra-axial fluid collection is present. Compared to the previous examination of 11/10/2016 there has been no significant change in the appearance of the brain. IMPRESSION: Extensive chronic ischemic changes as described. Given these findings, further evaluation with MRI may be desirable to exclude the possibility of a small acute infarction. Electronically signed by Fredy Zhang 05/06/2017 1:31 PM
--- NOTE | 2017-05-06 13:35 | Diag Imaging Result Doc PS360 ---
CT THORAX W/O CONTRAST - 05/06/2017 INDICATION: Pna/sepsis TECHNIQUE: A CT dose reduction protocol was used. COMPARISON: 12/02/2016 FINDINGS: Grossly stable large hiatal hernia. Stable dense calcification of the pericardium consistent with chronic pericarditis. Stable advanced coronary artery disease. There is a trace right pleural effusion. There is some right lower lobe infiltrate as well. Otherwise stable severe pulmonary fibrosis and COPD. Major airways demonstrate significant aspirated mucus or other secretions in the right mainstem bronchus. Stable renal cysts at the upper poles. Right-sided hydronephrosis is also suggested. There are some perinephric edema on the right. There are acute displaced rib fractures at the posterior right ribs #9, 10, and 11. There are also lateral right rib fractures, ribs #7-9. IMPRESSION: 1. Several right-sided rib fractures. 2. Aspirated mucus or secretions in the right mainstem bronchus. 3. Small right pleural effusion. Right lower lobe consolidation suggesting aspiration. 4. COPD with advanced pulmonary fibrosis. 5. Possible right renal hydronephrosis. Recommend a renal ultrasound or CT abdomen pelvis. Electronically signed by Rocky Nguyễn 05/06/2017 1:33 PM
--- NOTE | 2017-05-06 13:51 | HISTORY AND PHYSICAL ---
PRIMARY CARE PROVIDER: Dr. Vik Taylor. CHIEF COMPLAINT: Shortness of breath with cough. HISTORY OF PRESENT ILLNESS: Mr. Oh is an 89-year-old male with a past medical history of lung CA, hypertension, GERD, and COPD. The patient resides at [facility] and this morning the nurses noted that the patient's lungs sounded "wet" so they sent him to the emergency department. The patient's is at bedside and states that the patient has had increased confusion over the past week and a half that has progressively worsened and also has had frequent falls. The also states that last night was the most frequent fall as the patient attempted to use the restroom on his own with the assistance of a walker but fell with a superficial laceration and contusion to the right elbow that is noted. The patient denies any head trauma from fall. He is alert and oriented x2 at this time with slurred speech, but the says this could be from his dry mouth. The patient's only complaint of pain is in his right elbow and right forearm from prior falls from the past week and a half. The patient is exhibiting a frequent cough with crackles noted bilaterally and throughout up auscultation. The patient denies any history of congestive heart failure or NC but states he did have a CVA about 7 years ago that affected his right side. The patient denies any swelling in his extremities, dysuria, nausea, vomiting, diarrhea or constipation at this time. PAST MEDICAL HISTORY: 1. Lung cancer. 2. Hypertension. 3. GERD. 4. Depression. 5. Glaucoma. 6. CVA with subsequent right-sided weakness. 7. Chronic back pain. PAST SURGICAL HISTORY: 1. Bilateral inguinal hernia repair. 2. Cataract surgery. 3. Cervical spine and lumbar spine surgery. SOCIAL HISTORY: The patient is a former smoker x25 years ago. He drinks 1 glass of wine nightly. The patient is , and his is currently present at the bedside. FAMILY HISTORY: Father: Lung cancer. REVIEW OF SYSTEMS: Unable to obtain 2/2 neuro status. Significant Labs: WBC 31K, Hgb 12.8, Hct 38.4, Platelets 288, INR 1.10 CO2 17, BUN 32, Cr 1.7, Lactate 6.6 CXR: fibrosis, RUL PNA HOME MEDICATIONS: 1. Keflex 250 mg p.o. 4 times a day. 2. Diphenhydramine with acetaminophen. 3. Brimonidine 0.3% ophthalmic solution. 4. Plavix 75 mg. 5. Protonix 40 mg. 6. Zoloft 25 mg. 7. Michelle-Colace. 8. MiraLAX 17 grams. 9. Toprol-XL 25 mg. PHYSICAL EXAMINATION: VITAL SIGNS: Temperature 98.3 degrees, pulse rate 107, respiratory rate 28, blood pressure 96/71 with a MAP of 77. SpO2 of 97% on 2 L via nasal cannula. GENERAL: Mr. Oh is an 89-year-old male who appears to be frail, weak, and struggling to breathe at this time. The patient is very cold to touch. HEENT: Normocephalic. NAJMA. Mucous membrane dry. A large scab/eschar area noted to wear frontal and parietal regions of the head meet from skin cancer. The says that this has not gone away since the removal of the cancer. NECK: Supple with no lymphadenopathy. Trachea is midline. There is JVD noted. No thyromegaly. No bruits. CARDIOVASCULAR: No murmurs. No gallops. No rubs. The patient is in sinus tach at this time. RESPIRATORY: Crackles noted bilaterally and throughout with diminished breath sounds in the lower lobes bilaterally. There is equal chest excursion, slightly labored, but no use of accessory muscles at this time. GASTROINTESTINAL: Soft, nontender, nondistended. Bowel sounds are present and normoactive x4 quadrants with no abdominal bruits noted. GENITOURINARY: Deferred. NEURO: The patient is an alert and oriented x2 at this time with no focal deficits noted MUSCULOSKELETAL: Distal strength is slightly weaker on the right side than the left. Gait not evaluated due to patient's condition. EXTREMITIES: No clubbing, edema, or cyanosis. Distal pulses weak in the lower extremities but normal in upper extremities. SKIN: Dry and very cool to touch with a superficial skin tear/laceration to the right elbow and also a skin tear to the right forearm with eschar and crust noted with multiple bruises in the upper extremities. The patient is non-diaphoretic and does have increased skin turgor. ASSESSMENT AND PLAN: 1. Acute Respiratory Failure: Multifactorial to include sepsis and pneumonia. We will continue O2 as needed, broad spec abx, breathing treatments and aggressive pulmonary toilet. We have ordered a stat abg and chest CT. Given his h/o lung cancer and resp failure, we will consult Dr. Zimmerman with pulmonary as well. 2. Community Acquired PNA: As above, saunders-cultures have been obtained and broad spec abx have been ordered. CXR is also consistent with fibrosis, which the patient has no history of. We have asked Dr. Zimmerman to follow along. 3. Septic Shock: The patient's white blood cell count of 31,000 and a lactate of 6.6 along with tachycardia and hypotension are indicative of severe sepsis at this time. Fluid resuscitation has been started in the emergency department and will be continued with maintenance fluids. We will also continue broad-spectrum antibiotics as listed above. Pressors will be added if needed. 4. Altered mental status. The patient has been exhibiting signs of confusion over the past week and a half per . Likely, this is a combination of sepsis and PNA but we will order CAT scan his head and rule out hemorrhage. 5. Acute Kidney Injury: Likely pre-renal but will order urine labs and renal US to evaluate further, will continue fluids and avoid any nephrotoxic medications. 6. Multiple skin tears: The patient has a large superficial laceration/skin tear to the right elbow from a fall last night. This will be re-evaluated and treated by clinical review specialist in the hospital. There is also a wound on the right forearm from a fall that happened about a week and a half ago. Deep venous thrombosis prophylaxis: Heparin DO NOT RESUSCITATE LEVEL 1. Pt's does not want intubation, chest compressions or defibrillation, but has requested vasopressors if needed. Dictated by CYRUS Dunne for Yannick Lee MD cc: CYRUS Dunne MD Jeffrey A. Johnson, DO MTDD
[2017-05-06] MEDS ORDERED: VANCOMYCIN IV PER PHARMACY MISC SCH (13:57)
[2017-05-06] MEDS ORDERED: DUONEB (A & A) INH PRN (13:57)
[2017-05-06] MEDS: NS 1,000 ML IV SCH ×2 (14:28→18:36)
[2017-05-06] MEDS: LEVAQUIN 500 MG/D5W 500 MG/100 ML IVPB IV SCH (14:41)
--- NOTE | 2017-05-06 14:48 | SEPSIS: TISSUE PERFUSION ASSMT ---
Sepsis: Tissue Perfusion Assal - Physical Exam Assessment Date: 05/06/17 Time Assessment Initialized: 14:45 Vital Signs: Last Vital Signs Temp 98.3 F 05/06/17 10:22 Pulse 112 H 05/06/17 13:30 Resp 26 H 05/06/17 13:30 BP 126/83 05/06/17 13:30 Pulse Ox 98 05/06/17 13:30 Lung Sounds:: rhonchi Heart Sounds:: Regular Capillary Refill Time: Greater Than 2 Seconds Peripheral Pulse Evaluation:: radial (R): 1+, radial (L): 1+, dorsalis-pedis (R) : 1+, dorsalis-pedis (L): 1+, posterior tibialis (R): 1+, posterior tibialis (L) : 1+ Skin Exam:: pale - Impression Impression:: Tissue Perfusion Adequate - Plan Plan:: No Change (Pts vitals are adequate, neuro status has improved. Will continue fluids and pressors if needed.)
[2017-05-06] MEDS: DUONEB (A & A) INH SCH ×3 (16:09→22:56)
[2017-05-06 16:10] LABS: URINE SOURCE CATH
[2017-05-06 16:23] LABS: UR CREAT RANDOM 124.4 mg/dL (14-26)
[2017-05-06 16:31] LABS: BILIRUBIN URINE NEGATIVE (NEGATIVE); BLOOD URINE LARGE (NEGATIVE); COLOR ORANGE; GLUCOSE URINE NEGATIVE (NEGATIVE); LEUKOCYTES URINE NEGATIVE (NEGATIVE); NITRITE URINE NEGATIVE (NEGATIVE); PH URINE 5.5; PROTEIN URINE 70 mg/dL (NEGATIVE); SP GRAVITY URINE 1.024; TURBIDITY URINE HAZY (CLEAR); UR EPITHELIAL CELLS >10 /HPF (<10); URINE BACTERIA NEGATIVE /HPF; URINE CULTURE NEEDED? YES; URINE MICRO REVIEW NEEDED? YES; URINE RBC TNTC /HPF (<10); UROBILINOGEN URINE NORMAL (NORMAL)
[2017-05-06 16:35] LABS: URINE CASTS NONE SEEN; URINE CRYSTALS NONE SEEN; URINE SMALL ROUND CELLS RENAL PRESENT
--- NOTE | 2017-05-06 17:16 | Diag Imaging Result Doc PS360 ---
EXAM: US RENAL 2 (RETROPER) COMPLETE HISTORY: ? hydronephrosis TECHNIQUE: COMPARISON: CT without contrast dated 12/02/2016 FINDINGS: The right kidney measures 9.9 x 5.9 x 6.3 cm. No stone or hydronephrosis. There appears to be thickening to the cortex. The left kidney measures 10.2 x 5.0 x 6.0 cm. There is a 3.6 cm cyst. No stone or hydronephrosis. No solid mass. Urinary bladder is moderately distended and appears normal. IMPRESSION: 1.Atypical prominence to the right kidney of uncertain etiology. No focal mass identified on the prior CT without contrast. Follow-up with contrast may be beneficial. 2.Left renal cyst. Electronically signed by Rome Alvarenga 05/06/2017 5:13 PM
[2017-05-06] MEDS: ZOSYN 2.25 GM/NS 2.25 GM/50 ML IVPB IV SCH (18:17)
[2017-05-06] MEDS ORDERED: PNEUMOVAX 23 IM ONE (18:45)
--- NOTE | 2017-05-06 20:02 | ED EKG INTERP ---
This chart was entered by Marbella Gross Scribe, acting as scribe for Emerson Gonzalez MD. EKG Interpretation - EKG Time of EKG reading by physician:: 12:35 EKG Read and Signed by:: Emerson Gonzalez EKG Interpretation (*Must complete 3 of following elements*): Abnormal Rate: 104 (possible left atrial enlargement; left axis deviation; possible lateral infarct ) Rhythm: sinus tachycardia QRS: RBB This chart was documented by the indicated scribe, (Marbella Gross Scribe) and accurately reflects the services I performed and decisions made by Carlos hart Robert H., MD, as attested by the provider's signature.
[2017-05-06] MEDS: HEPARIN SUBQ SCH (20:14)
--- NOTE | 2017-05-06 21:29 | CONSULTATION ---
DATE OF CONSULTATION: 05/06/2017 REQUESTING PHYSICIAN: Yannick Lee MD REASON FOR CONSULTATION: Respiratory failure. HISTORY OF PRESENT ILLNESS: Mr. Oh is an 89-year-old white male with a [id number] history for tobacco (nonsmoker for greater than 25 years), history of lung cancer status post chemoradiation without surgical resection in 2005 (completed treatment in 2006) who presented to the emergency room after he was found on the floor. The patient was noted to have wet breath sounds and was brought to the emergency room. CT scan of the brain revealed no acute changes. CT scan of the thorax revealed multiple right-sided rib fractures, hiatal hernia with liquid in the esophagus, pneumonia in the right base, evidence of extensive emphysema and fibrosis with probable radiation changes in the right upper lobe from previous treatment for lung cancer. He had evidence of acute renal failure when compared to prior chemistries this year along with an increased anion gap. Lactic acidosis. PAST MEDICAL HISTORY: 1. 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 The patient was deemed a nonsurgical candidate and did not receive any resection, although there are multiple hospital visits indicating he had partial lung resection. The patient underwent chemoradiation at [facility]. 2. History of stroke in May 2010. 3. Osteoarthritis. 4. Previous fall in November of this year. 5. EGD with dilation. 6. Hypertension. 7. Reflux. 8. Depression. 9. Chronic back pain. 10. Status post bilateral inguinal hernia repair. 11. Cervical spine and lumbar spine surgeries. SOCIAL HISTORY: Prior tobacco use. Daily alcohol use. FAMILY HISTORY: Noncontributory to current presentation. PHYSICAL EXAMINATION: General: Reveals a frail, chronically ill-appearing male resting comfortably with no increased work of breathing. Vital signs: Blood pressure 123/77, heart rate 124, respiration rate 33, oxygen saturation 99%. HEENT: Pupils are equal and reactive. Oropharynx is clear. Scalp reveals a large irregular lesion above the left ear. Oropharynx is clear. Neck: Reveals no significant adenopathy. Chest: Reveals limited expansion with pain reported on deep breathing and cough. Audible rhonchi present. Cardiac: Increased rate. Regular rhythm. Abdomen: Soft without hepatosplenomegaly. Extremities: Without edema. LABORATORIES: Sodium 138, potassium 4.9, chloride 99, bicarbonate 17, anion gap 22, BUN 32, creatinine 1.7. Urinalysis reveals large amount of blood with 10-20 white blood cells per high power field. Arterial blood gas reveals pH 7.38, pCO2 of 24, PO2 of 86. IMAGING: CT scan of the thorax reveals fibrosis, predominantly in the right upper lobe, emphysema, large hiatal hernia, fluid-filled esophagus, pneumonia at the right base and multiple right-sided rib fractures. IMPRESSION: An 89-year-old with COPD, remote history of lung cancer, pulmonary fibrosis, aspiration pneumonia, hypoxemic respiratory failure, multiple acute rib fractures, tachycardia, acute renal failure. With his age and multiple rib fractures, his prognosis is guarded to poor. His DNR status has been reviewed and I agree with this. RECOMMENDATIONS: 1. Oxygen as needed for hypoxemic respiratory failure. The patient is a Do Not Intubate. 2. Pain medicines as you are doing for multiple rib fractures. 3. I agree with current antibiotics for aspiration pneumonia. 4. Continue fluid resuscitation for dehydration and acute renal failure. 5. Agree with bronchodilators. 6. Incentive spirometry if the patient will follow commands to perform for bronchial hygiene. 7. Additional recommendations pending hospital course. cc: Erik Zimmerman MD
[2017-05-06] MEDS ORDERED: NS 250 ML IV ONE (22:26)
[2017-05-07] MEDS: ZOSYN 2.25 GM/NS 2.25 GM/50 ML IVPB IV SCH ×5 (00:14→23:13)
[2017-05-07] MEDS: LEVOPHED 8 MG in D5 1/2 NS 250 ML IV SCH (00:35)
[2017-05-07] MEDS: MORPHINE IV PRN ×6 (01:40→23:04)
[2017-05-07] MEDS: NS 1,000 ML IV SCH ×2 (01:45→08:01)
[2017-05-07 02:19] LABS: HEMATOCRIT 29.3 % (42.0-52.0); HEMOGLOBIN 9.6 g/dL (14.0-18.0); MCH 31.7 PG (27-31); MCHC 32.8 g/dL (33-37); MCV 96.7 FL (81-99); MPV 11.2 FL (7.4-10.4); RBC 3.03 XMIL (4.7-6.1)
[2017-05-07 02:38] LABS: CALCIUM 8.5 mg/dL (8.8-10.2); POTASSIUM 4.6 mmol/L (3.5-5.1)
[2017-05-07] MEDS: DUONEB (A & A) INH SCH ×6 (03:06→23:00)
--- NOTE | 2017-05-07 06:20 | Diag Imaging Result Doc PS360 ---
EXAM: CHEST-PORTABLE HISTORY: dyspnea TECHNIQUE: COMPARISON: 05/06/2017 FINDINGS: There is an air-filled density in the medial lung base which may represent a large hiatal hernia. Appearance is unchanged from prior exam. There are increased interstitial markings, particularly in the mid right lung. Questionable trace right pleural effusion. There is also right apical pleural thickening. The patient is rotated to the left. There are long-standing arthritic changes to the right shoulder and evidence of prior surgery to the left shoulder. IMPRESSION: Stable chest. Electronically signed by Rome Alvarenga 05/07/2017 6:17 AM
[2017-05-07] MEDS: HEPARIN SUBQ SCH ×2 (07:59→20:44)
[2017-05-07] MEDS ORDERED: NS 1,000 ML IV SCH (08:45)
[2017-05-07] MEDS: CLINIMIX E 4.25%-5% SOLUTION 1,000 ML IV SCH (10:12)
--- NOTE | 2017-05-07 11:56 | PROGRESS NOTE ---
DATE: 05/07/2017 SUBJECTIVE: This patient is still about the same. He looks weak and cachectic, chronically ill, male. He is not having respiratory distress at this moment. Because of his severe weakness, he is not able to eat. So I will Clinimix to his medications. OBJECTIVE: Vital Signs: Temperature 98 degrees, pulse 128, respiratory rate 19, blood pressure 118/79, O2 saturation 100% on 2 L of nasal cannula. HEENT: Head normocephalic. No trauma. PERRLA. He has a large eschar area noted to frontal and parietal regions of the head. I am not sure but it is probably from previous skin cancer. As per admission note the says that this has not gone away since the removal of the cancer. Neck: Supple. No JVD. No masses. Central trachea. Cardiovascular: Regular rate and rhythm. Sinus tachycardia. Chest: Crackles bilaterally throughout. Decreased breath sounds at the bases. Slightly labored but no use of accessory muscles. Gastrointestinal: Soft, nontender, nondistended. No hepatosplenomegaly. Neurological: The patient is alert. He is oriented x2. He moves all 4 extremities but he is extremely weak. Extremities: No edema. No cyanosis. No clubbing. Skin dry. He has a laceration to the right elbow and also a skin tear to the right forearm with multiple pulses in the upper extremities. LABORATORY: WBC 25.8, hemoglobin 9.6, hematocrit 39.3, platelets 211,000. Sodium 140, potassium 4.6, chloride 106, bicarbonate 17, BUN 32, creatinine 1.3. Plasma lactate 3.9. ASSESSMENT AND PLAN: 1. Acute respiratory failure likely secondary to pneumonia. We will continue with oxygen supplementation, antibiotics, breathing treatment. Pulmonary toilet. Pulmonary department is following this patient as well. 2. Community-acquired pneumonia. We asked for blood culture and urine culture and that has been negative so far. Continue with antibiotics. 3. Septic shock. Continue with the same management. This patient is on pressors. 4. Altered mental status. He is following commands today and he is he was able to say his name. He knows he is in a hospital but he does not know which one. 5. Acute kidney injury, likely prerenal. It is getting better. Continue with the same management. 6. Multiple skin tears. Continue with the same treatment. This patient is do not resuscitate level 1. The patient's does not want intubation, chest compression or defibrillation, just vasopressors if needed. CRITICAL CARE TIME: 35 minutes. cc: Yannick Lee MD
[2017-05-07] MEDS: LEVAQUIN 500 MG/D5W 500 MG/100 ML IVPB IV SCH (12:57)
[2017-05-07] MEDS: SODIUM BICARBONATE 8.4% 100 MEQ in D5W 1,000 ML IV SCH ×2 (14:25→23:13)
[2017-05-08] MEDS: MORPHINE IV PRN ×7 (03:15→22:39)
[2017-05-08] MEDS: DUONEB (A & A) INH SCH ×6 (03:20→23:05)
[2017-05-08 05:03] LABS: HEMATOCRIT 24.7 % (42.0-52.0); HEMOGLOBIN 8.1 g/dL (14.0-18.0); MCH 31.6 PG (27-31); MCHC 32.8 g/dL (33-37); MCV 96.5 FL (81-99); MPV 11.3 FL (7.4-10.4); RBC 2.56 XMIL (4.7-6.1)
[2017-05-08] MEDS: ZOSYN 2.25 GM/NS 2.25 GM/50 ML IVPB IV SCH ×3 (05:13→17:55)
[2017-05-08] MEDS: CLINIMIX E 4.25%-5% SOLUTION 1,000 ML IV SCH (05:16)
[2017-05-08 05:43] LABS: AGAP 13; BUN 29 mg/dL (8-22); CALCIUM 8.7 mg/dL (8.8-10.2); CHLORIDE 103 mmol/L (98-107); COSMO 283; POTASSIUM 3.4 mmol/L (3.5-5.1); SODIUM 138 mmol/L (136-145); TCO2 22 mmol/L (25-35)
[2017-05-08] MEDS ORDERED: MAGNESIUM SULFATE 2 GM/S.W.I. 2 GM/50 ML IVPB IV ONE (08:14)
--- NOTE | 2017-05-08 08:23 | Diag Imaging Result Doc PS360 ---
EXAM: CHEST-PORTABLE INDICATION: dyspnea TECHNIQUE: One view COMPARISON: 05/07/2017 FINDINGS: Inspiration is suboptimal. Increased interstitial markings bilaterally are essentially stable. No new consolidation is identified. There is a small right pleural effusion that appears to be increasing in size. Cardiac silhouette is stable. A large hiatal hernia is unchanged. IMPRESSION: Increasing right pleural effusion. Stable chest, otherwise. Electronically signed by Mane Richardson 05/08/2017 8:21 AM
[2017-05-08] MEDS: SODIUM BICARBONATE 8.4% 100 MEQ in D5W 1,000 ML IV SCH ×2 (08:30→16:58)
[2017-05-08] MEDS: HEPARIN SUBQ SCH ×2 (08:47→20:13)
--- NOTE | 2017-05-08 10:33 | PROGRESS NOTE ---
DATE: 05/08/2017 SUBJECTIVE: This patient is still about the same. He looks weak and cachectic, chronically ill. He is having some respiratory distress at this moment and, because of his severe weakness, he is not able to eat. I have ordered an NG tube to see if we can start feeding this patient. OBJECTIVE: Vital Signs: Temperature 99.3 degrees, pulse 135, respiratory rate 29, blood pressure 107/78, oxygen saturation 99 on 2 L. HEENT: Head normocephalic. No trauma. PERRLA. Neck: Supple. No JVD. No masses. Central trachea. Chest: Coarse breath sounds with generalize crackles. Abdomen soft, nontender, nondistended. No hepatosplenomegaly. Cardiovascular: RRR. Tachycardic. Neurologic: The patient is sleepy but arousable. He is oriented x2. He moves all 4 extremities, but he is extremely weak. He is following commands. Extremities: No edema. No clubbing. No cyanosis. Dry skin. He has a laceration to the right elbow and also a skin tear to the right forearm. Multiple bruises in the upper extremities. LABORATORY: WBC 25, hemoglobin 8.1, hematocrit 24.7, platelet 182,000. Sodium 138, potassium 3.4, chloride 103, bicarbonate 22. BUN 29, creatinine 0.9, glucose 125. Calcium 8.7, magnesium 1.3. ASSESSMENT AND PLAN: 1. Acute respiratory failure likely secondary to pneumonia. Continue with oxygen supplementation, antibiotics, breathing treatment, pulmonary toilet. Pulmonary Department is following this patient as well. 2. Septic shock. Continue with the same management. This patient is still on pressors. He is still tachycardic and tachypneic. Continue with supportive care. 3. Community-acquired pneumonia. Blood culture and urine culture have been negative so far. Continue with antibiotics. 4. Altered mental status. He is following commands, and he is able to say his name. He knows he is in the hospital. He does not know which one. 5. Acute kidney injury, likely pre-renal. This is much better. Continue with the same management. 6. Multiple skin tears. Continue with the same treatment. 7. Hypokalemia. I will replace the potassium. 8. Hypomagnesium. I will replace the magnesium. 9. Nutritional status: This patient is getting Clinimix. I have ordered an NG tube to see if we can start doing tube feedings with this patient. 10. Patient is DNR LEVEL 1. The patient's does not want intubation, chest compression, defibrillation; just vasopressors if needed. CRITICAL CARE TIME: 35 minutes. cc: Yannick Lee MD
[2017-05-08] MEDS: POTASSIUM CHLORIDE 20 MEQ/SWI 20 MEQ/100 ML IVPB IV SCH ×2 (10:34→11:37)
[2017-05-08] MEDS ORDERED: VANCOMYCIN 1 GM/NS 1 GM/250 ML IVPB IV SCH (12:00)
[2017-05-08] MEDS: LEVOPHED 8 MG in D5 1/2 NS 250 ML IV SCH (13:20)
[2017-05-08] MEDS: LEVAQUIN 500 MG/D5W 500 MG/100 ML IVPB IV SCH (14:19)
[2017-05-08] MEDS ORDERED: LOPRESSOR IV ONE (17:28)
[2017-05-09] MEDS: ZOSYN 2.25 GM/NS 2.25 GM/50 ML IVPB IV SCH ×3 (00:07→11:50)
[2017-05-09] MEDS: SODIUM BICARBONATE 8.4% 100 MEQ in D5W 1,000 ML IV SCH (01:06)
[2017-05-09] MEDS: CLINIMIX E 4.25%-5% SOLUTION 1,000 ML IV SCH (01:06)
[2017-05-09] MEDS: MORPHINE IV PRN ×4 (01:32→16:15)
[2017-05-09] MEDS ORDERED: LASIX IV ONE ×2 (02:21→06:40)
[2017-05-09] MEDS ORDERED: OFIRMEV 1000 MG/ISOTONIC SOLN 1,000 MG/100 ML BOTTLE IV PRN (02:25)
[2017-05-09 02:41] LABS: ALLEN TEST YES; BE 3.6 mmoll (-3.0-3.0); BLOOD TYPE ARTERIAL; DRAW SITE R RADIAL; METHB 1.1 % (0.0-1.5); O2(CT) 12.6 mL/dL (15.0-23.0); PO2(98.6) 183 mmHg (60-100); SAMPLE BLOOD; SAO2 100.4 % (95.0-100.0); THB 8.9 g/dL (11.5-17.4); pH(98.6) 7.37 (7.35-7.45)
[2017-05-09 02:43] LABS: MODALITY NRB; PCO2(98.6) 51 mmHg (35-45)
[2017-05-09 02:55] LABS: HEMATOCRIT 24.9 % (42.0-52.0); HEMOGLOBIN 8.3 g/dL (14.0-18.0); MCH 31.9 PG (27-31); MCHC 33.3 g/dL (33-37); MCV 95.8 FL (81-99); MPV 10.7 FL (7.4-10.4); RBC 2.6 XMIL (4.7-6.1)
[2017-05-09 03:20] LABS: AGAP 13; BUN 26 mg/dL (8-22); CALCIUM 8.5 mg/dL (8.8-10.2); CHLORIDE 92 mmol/L (98-107); COSMO 272; SODIUM 132 mmol/L (136-145); TCO2 27 mmol/L (25-35)
[2017-05-09] MEDS: DUONEB (A & A) INH SCH ×4 (03:31→15:16)
[2017-05-09] MEDS: LOPRESSOR IV PRN ×2 (07:43→14:04)
--- NOTE | 2017-05-09 08:17 | Diag Imaging Result Doc PS360 ---
EXAM: CHEST-PORTABLE INDICATION: increased dyspnea TECHNIQUE: One view COMPARISON: 05/08/2017 FINDINGS: Diffuse pulmonary fibrosis is again noted. There is overall increased density throughout both lungs suggesting worsening superimposed infiltrate. The large hiatal hernia and cardiac silhouette are grossly stable. IMPRESSION: Increased opacity throughout both lungs as compared to the previous study suggesting fibrosis with superimposed infiltrate. Electronically signed by Mane Richardson 05/09/2017 8:14 AM
[2017-05-09] MEDS ORDERED: CLINIMIX E 4.25%-5% SOLUTION 1,000 ML IV SCH (08:38)
[2017-05-09] MEDS ORDERED: LASIX IV SCH (09:00)
[2017-05-09] MEDS: HEPARIN SUBQ SCH (09:26)
--- NOTE | 2017-05-09 11:57 | PROGRESS NOTE ---
DATE: 05/09/2017 SUBJECTIVE: This patient is still about the same. He looks weak and cachectic. He is having respiratory distress. He is on a nonrebreathing mask, 100% FiO2. I had a conversation with his for about 30 minutes. We talked about his condition. He has a poor prognosis. He is DNR level 2. We are using just medications to keep the blood pressure up. I think he is getting worse and she seems to understand that probably we need in the near future to talk about hospice. OBJECTIVE: Vital Signs: Temperature 99 degrees, pulse 139, respiratory rate 20, blood pressure 102/64, oxygen saturation 100% on a nonrebreathing mask. HEENT: Head normocephalic. No trauma. PERRLA. Neck: Supple. No JVD. No masses. Central trachea. Chest: Coarse breath sounds bilaterally with generalized crackles. Decreased breath sounds at the bases. Abdomen: Soft, nontender, nondistended. Cardiovascular: RRR. Tachycardic. Neurological Examination: This patient is sleepy but arousable. He is oriented x2. He moves all 4 extremities. He is extremely weak. He is following commands. Extremities: No edema. No clubbing. No cyanosis. Skin: Dry skin. He has a laceration to the right elbow and also a skin tear to the right forearm with multiple bruises, mostly at the level of the upper extremities. Laboratory: WBC 25.3, hemoglobin 8.3, hematocrit 24.9, platelets 212,000. Sodium 132, potassium 4, chloride 92, bicarbonate 27, BUN 26, creatinine 0.7, glucose 144, calcium 8.5, magnesium 1.7. ASSESSMENT AND PLAN: 1. Acute respiratory failure, likely secondary to pneumonia. Continue with oxygen, antibiotics, breathing treatment, and pulmonary toilet. Pulmonary department is following this patient as well. 2. Septic shock. For now, we will continue with pressors. He is [id number] level 2. He is tachycardic and tachypneic. 3. Community-acquired pneumonia. Continue with broad spectrum antibiotics. 4. Altered mental status. He is following commands. He is able to say his name. He knows he is in the hospital. He does not know which one. Stable. 5. Acute kidney injury. This is much better. BUN is 26, creatinine 0.7. 6. Hypokalemia, resolved. 7. Hyponatremia, mild. We will keep an eye on this. 8. Hypomagnesemia. The magnesium has been replaced yesterday. Today, is much better. 9. Nutritional status. This patient is getting Clinimix. I have stopped the sodium bicarbonate and I will increase the rate of Clinimix. 10. This patient is is-azg-brlbmthpfyx level 1. This patient's does not want intubation, chest compression, defibrillation. Just vasopressors if needed. CRITICAL CARE TIME: 35 minutes. cc: Yannick Lee MD
[2017-05-09] MEDS: LEVAQUIN 500 MG/D5W 500 MG/100 ML IVPB IV SCH (14:04)
[2017-05-09] MEDS ORDERED: ATIVAN IV ONE (14:46)
[2017-05-09] MEDS ORDERED: ATIVAN IV PRN (15:29)
--- NOTE | 2017-05-09 15:37 | Diag Imaging Result Doc PS360 ---
EXAM: CHEST-PORTABLE INDICATION: increased agitation TECHNIQUE: One view COMPARISON: 05/09/2017 FINDINGS: Extensive bilateral pulmonary fibrosis with superimposed infiltrate is again noted. The density appears to have decreased during the interval. This may be technical due to differences in exposure and positioning. There is no definite new consolidation. Cardiac silhouette is stable. IMPRESSION: Decreasing density of the diffuse bilateral infiltrates superimposed on fibrosis seen on the previous study. Electronically signed by Mane Richardson 05/09/2017 3:35 PM
--- NOTE | 2017-05-09 16:05 | PROGRESS NOTE ---
DATE: 05/09/2017 SUBJECTIVE: I was called by the nurse in the ICU, family members wanted to talk to me about his prognosis and his actual condition. After a long conversation they decided to the stopped his pressors, now he will be Do Not Resuscitate, level 1 and the family wants comfort measures only. Continue with antibiotics, but no pressors, no intubation, no defibrillation. No endotracheal tube placement Time discussing the case with the family, his and son and daughter 35 minutes. cc: Yannick Lee MD
[2017-05-09 16:36] VITALS: BP 64/46
[2017-05-09] MEDS ORDERED: VANCOMYCIN 1 GM/NS 1 GM/250 ML IVPB IV SCH (18:00)
--- NOTE | 2017-05-11 06:08 | DISCHARGE SUMMARY ---
ADMISSION DATE: 05/06/2017 DISCHARGE DATE: 05/09/2017 The patient on 05/09/2017 at 17:20. PERTINENT PROCEDURES: 1. Chest CT showed several right-sided rib fractures, aspirated mucus or secretions in the right mainstem bronchus. Small right pleural effusion and right lower lobe consolidation suggesting aspiration. 2. COPD with advanced pulmonary fibrosis, possible right renal hydronephrosis. 3. Head CT showed extensive chronic ischemic changes. 4. Renal ultrasound showed an atypical prominence of the right kidney of uncertain etiology. No focal mass identified on the prior CT without contrast. Left renal cyst. DISCHARGE DIAGNOSES: 1. Acute respiratory failure secondary to pneumonia. The patient was treated with O2, IV antibiotics, bronchodilators, pulmonary toilet as well as Pulmonary consultation. The patient on 05/09/2017 at 17:20 after being made a DNR level 1 by family with comfort measures only. They only wanted antibiotics but no pressors. No intubation. No defibrillation. No ET tube placement. 2. Septic shock. 3. Community-acquired pneumonia. 4. Altered mental status. 5. Acute kidney injury. 6. Hypokalemia. 7. Hypernatremia. 8. Hypomagnesemia. 9. Nutritional status. HOSPITAL COURSE: Mr. Oh is an 89-year-old male with past medical history of lung cancer, hypertension, GERD and COPD. He resides at the [facility]. On the morning of his admission, the nurses noted that the patient's lungs sounded wet so they sent him to the emergency room. His was at the bedside and stating that he had increased confusion over the last week and a half and progressively worsened. He also had frequent falls. His most recent fall was when he attempted to go to the restroom on his own with the assistance of a walker but he fell, and had a superficial laceration and contusion to the right elbow. They deny any head trauma from his falls. At the time of admission, he was alert and oriented x2 with slurred speech. He had been complaining of pain from his right elbow and forearm as well as having a frequent cough. He is noted to have a white count of 31. Lactate of 6.6. Chest x-ray showed fibrosis and right upper lobe pneumonia. He is admitted for acute respiratory failure as well as severe sepsis. Hernandez cultures were obtained. Broad-spectrum antibiotics were started. The patient was started on fluid resuscitation. Following the sepsis protocol, pulmonary was consulted and he was transferred to the ICU. A CT of the thorax did reveal multiple right-sided rib fractures. The patient's respiratory status continued to decline. did make him a DNR level 1. She did not want intubation, chest compressions or defibrillation, vasopressors if needed. Dr. Samuels had a long conversation with the patient's family on 05/09. They decided to stop his pressors. He remained a DNR level 1 with comfort measures only and to continue only antibiotics. On 05/09/2017 at 17:20, the patient . Dictated by CYRUS Mi for Yannick Lee MD cc: Yannick Lee MD
== END 2017-05-09 17:20 | disposition expired ==
LOC: SUPCPDRO → ED 09:57 → ICU 13:12
PROVIDERS: ATTEND Internal Medicine